=== PATIENT | female | born 1930 | race Caucasian/White ===

== ENCOUNTER 2017-01-25 20:51 | Inpatient (IN) | payer MEDICARE ==
[~2017-01-25] VITALS: Ht 154.9 cm; Wt 94.9 kg
[~2017-01-25 20:51] MED LIST: ACET500T55 PO; ASPI81TA44 PO; ASPI81TA9 PO; CALC600T11 PO; CYCL10TA2 PO; Cyclobenzaprine Hcl PO; DONE5TAB33 PO; ENAL5TAB PO; FURO20TA3 PO; FURO40TA4 PO; GLIP5TAB10 PO; HYDR-2666 PO; Hydrocodone Bit/Acetaminophen PO; Ipratropium/Albuterol Sulfate NEB; LEVO250T25 PO; LISI10TA2 PO; MAG DELAY64 MG PO; MAG30ORA2 PO; MECL12.5 PO; METH4TAB PO; METO25TA2 PO; METR500T PO; MIRA25TA PO; MOME13HF IH; PANT40TA5 PO; POTA20TA12 PO; PRED-220 PO; TOLT4CAP12 PO; ZOLP5TAB PO
--- NOTE | 2017-01-25 21:08 | ED.ADGEN ---
Past History Past Medical History: CAD, CHF, COPD, Diabetes, High Cholesterol, Heart Disease , Hypertension, AK, Stroke Past Surgical History: Other Smoking: Quit Greater Than 1 Year Alcohol Use: None Drug Use: None Adult General Chief Complaint Chief Complaint ".. This Lt foot started draining bad.. and it hurts.. the whole leg hurts... and I fell today.. on this Lt. arm..." HPI HPI Patient is a 86 year old female who presents with above hx and complaints of cellulitis and fall on Lt. arm today. Pt. reports the cellulitis just started. Pt. has hx into health history was coronary artery disease, diabetes, hypertension, COPD, AK, CVA, degenerative joint changes. Patient denies any travel. Patient denies any specific ill contacts. Patient follows with Dr. Ann., Review of Systems Review of Systems Constitutional: complaints of fever Eyes: Denies change in visual acuity, redness, or eye pain [] HENT: Denies nasal congestion or sore throat [] Respiratory: Denies cough or shortness of breath [] Cardiovascular: No additional information not addressed in HPI [] GI: Denies abdominal pain, nausea, vomiting, bloody stools or diarrhea [] : Denies dysuria or hematuria [] Musculoskeletal: Chronic back pain and joint pain [] Has history of left foot pain and drainage. Integument: Denies rash or skin lesions [] Neurologic: Denies headache, focal weakness or sensory changes [] Endocrine: Denies polyuria or polydipsia [] Family History Family History Noncontributory Current Medications Current Medications Current Medications Medications (Trade) Dose Ordered Sig/Gilberto Start Time Stop Time Status Last Admin Dose Admin Aspirin 324 mg 324 mg 1X ONCE 01/25/17 22:15 01/25/17 22:16 DC 01/25/17 22:15 324 MG Diphtheria/ Tetanus/Acell Pertussis 0.5 ml 0.5 ml ONCE ONCE 01/25/17 22:15 01/25/17 22:16 DC 01/25/17 22:15 0.5 ML Lactated Ringer's 1,000 ml @ 100 mls/hr Q10H 01/25/17 21:45 01/25/17 23:02 100 MLS/HR Ondansetron HCl (Zofran) 4 mg PRN Q4HRS PRN 01/26/17 00:15 01/27/17 00:14 Sodium Chloride (Iv Sodium Chloride 0.9% 250ml) 250 ml @ As Directed STK-MED ONCE 01/25/17 21:53 01/25/17 21:54 DC Vancomycin HCl (Vanco Per Pharmacy) 1 each PRN DAILY PRN 01/26/17 00:15 Vancomycin HCl 1 gm 1 gm STK-MED ONCE 01/25/17 21:54 01/25/17 21:55 DC Vancomycin HCl/ Sodium Chloride (Iv Sodium Chloride 0.9% 250ml) 250 ml @ 250 mls/hr 1X ONCE 01/25/17 21:45 01/25/17 22:44 UNV Vancomycin HCl/ Sodium Chloride (Iv Sodium Chloride 0.9% 500ml) 500 ml @ 250 mls/hr 1X ONCE 01/25/17 22:30 01/26/17 00:29 DC 01/25/17 23:00 250 MLS/HR Allergies Allergies Allergies Coded Allergies Type Severity Reaction Last Updated Verified cephalexin Allergy Intermediate 10/01/14 Yes famotidine Allergy Intermediate 10/01/14 Yes tetracycline Allergy Intermediate 10/01/14 Yes tolmetin Allergy Intermediate 10/01/14 Yes Physical Exam Physical Exam Constitutional:mild distress, non-toxic appearance. [] HENT: Normocephalic, atraumatic, bilateral external ears normal, oropharynx moist, no oral exudates, nose normal. [] Eyes: PERRLA, EOMI, conjunctiva normal, no discharge. Glasses. Neck: Normal range of motion, no tenderness, supple, no stridor. [] Cardiovascular: Tachycardia Heart rate regular rhythm, no murmur , PMI to Lt. Lungs & Thorax: Bilateral breath sounds equal at apexes with scattered wheezes on auscultation [] Abdomen: Bowel sounds normal, soft, no tenderness, no masses, no pulsatile masses. Obese. Skin: Warm, dry, bilateral erythema lower legs. lt foot more swollen and drainage. Back: No tenderness, no CVA tenderness. [] Extremities: Lt foot and ankle tenderness, no cyanosis, no clubbing, ROM intact , bilateral lower leg edema. [] Generalized weakness. Arthritic changes. Neurologic: Alert and oriented X 3, no large motor function deficits, Lt upper arm tenderness, decrease foot sensory, n Psychologic: Affect anxious, judgement normal, mood depressed. Current Patient Data Vital Signs Vital Signs Date Time Temp Pulse Resp B/P Pulse Ox O2 Delivery O2 Flow Rate FiO2 01/26/17 00:13 88 20 143/68 98 Room Air 01/25/17 23:46 98.5 Lab Results Laboratory Tests Test 01/25/17 23:15 White Blood Count 9.1x10^3/uL (4.0-11.0) Red Blood Count 3.23x10^6/uL (3.50-5.40) L Hemoglobin 10.6g/dL (12.0-15.5) L Hematocrit 31.8% (36.0-47.0) L Mean Corpuscular Volume 98fL (79-100) Mean Corpuscular Hemoglobin 33pg (25-35) Mean Corpuscular Hemoglobin Concent 33g/dL (31-37) Red Cell Distribution Width 16.6% (11.5-14.5) H Platelet Count 235x10^3/uL (140-400) Neutrophils (%) (Auto) 63% (31-73) Lymphocytes (%) (Auto) 26% (24-48) Monocytes (%) (Auto) 8% (0-9) Eosinophils (%) (Auto) 2% (0-3) Basophils (%) (Auto) 1% (0-3) Neutrophils # (Auto) 5.7x10^3uL (1.8-7.7) Lymphocytes # (Auto) 2.4x10^3/uL (1.0-4.8) Monocytes # (Auto) 0.8x10^3/uL (0.0-1.1) Eosinophils # (Auto) 0.2x10^3/uL (0.0-0.7) Basophils # (Auto) 0.1x10^3/uL (0.0-0.2) Prothrombin Time 11.0SEC (9.4-11.4) Prothrombin Time INR 1.1 (0.9-1.1) PTT 25SEC (23-33) D-Dimer (Erica) 1.07mg/L (0.00-0.50) H Sodium Level 143mmol/L (136-145) Potassium Level 3.9mmol/L (3.5-5.1) Chloride Level 106mmol/L (98-107) Carbon Dioxide Level 32mmol/L (21-32) Anion Gap 5 (6-14) L Blood Urea Nitrogen 18mg/dL (7-20) Creatinine 1.6mg/dL (0.6-1.0) H Estimated GFR (Cockcroft-Gault) 30.6 Glucose Level 129mg/dL (70-99) H Calcium Level 8.9mg/dL (8.5-10.1) Magnesium Level 1.9mg/dL (1.8-2.4) Total Bilirubin 0.4mg/dL (0.2-1.0) Direct Bilirubin 0.1mg/dL (0.0-0.2) Aspartate Amino Transferase (AST) 16U/L (15-37) Alanine Aminotransferase (ALT) 12U/L (14-59) L Alkaline Phosphatase 155U/L (46-116) H Creatine Kinase 100U/L (26-192) Creatine Kinase MB (Mass) 1.3ng/mL (0.0-3.6) Creatine Kinase MB Relative Index 1.3% (0-4) Troponin I Quantitative < 0.017ng/mL (0-0.055) HF-Wos-E-Type Natriuretic Peptide 587pg/mL (0-449) H Total Protein 7.3g/dL (6.4-8.2) Albumin 3.4g/dL (3.4-5.0) Lipase 63U/L (73-393) L EKG EKG My interpretation of EKG shows a sinus rhythm at 89 bpm. There is slightly prolonged NM interval. Leftward axis changes. But no findings acute STEMI at this time. [] Radiology/Procedures Radiology/Procedures My interpretation of left humerus shows degenerative joint changes. No obvious fracture dislocation. My interpretation left foot shows edema and severe degenerative joint changes. But no findings of displaced fracture. [] My interpretation of chest x-ray shows cardiomegaly and chronic COPD changes. Similar prior films. Degenerative joint changes. Course & Med Decision Making Course & Med Decision Making Pertinent Labs and Imaging studies reviewed. (See chart for details). Discussed presentation, testing and tx. plan with Dr. Garcia- will admit for further eval and tx. [] Final Impression Final Impression 1. Cellulitis[]- Lt leg 2. Falling 3. Anemia 4. Elevated Creat. 5. Hx. COPD 6. Hx. CADz Problems: Dragon Disclaimer Dragon Disclaimer This electronic medical record was generated, in whole or in part, using a voice recognition dictation system. LOLA HERNÁNDEZ MD Jan 25, 2017 21:08
[2017-01-25] MEDS ORDERED: IV RINGERS SOLUTION,LACTATED 1,000 ML IV SCH (21:45)
[2017-01-25] MEDS ORDERED: VANCOMYCIN 1 GM in IV NORMAL SALINE 250ML 250 ML IV ONE (21:45)
[2017-01-25] MEDS ORDERED: IV NORMAL SALINE 250ML 250 ML ONE (21:53)
--- NOTE | 2017-01-25 21:53 | EKG ---
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
[2017-01-25] MEDS ORDERED: VANCOMYCIN 1 GM VIAL. ONE (21:54)
[2017-01-25] MEDS ORDERED: ASPIRIN 81 MG TAB.CHEW PO ONE (22:15)
[2017-01-25] MEDS ORDERED: DIPHTH,PERTUSS(ACELL),TET TOX 0.5 ML DISP.SYRIN. VAX IM ONE (22:15)
[2017-01-25] MEDS ORDERED: VANCOMYCIN 2 GM in IV NORMAL SALINE 500ML 500 ML IV ONE (22:30)
[2017-01-25 23:37] LABS: BASO # 0.1 x10^3/uL (0.0-0.2); BASO % 1 % (0-3); EOS # 0.2 x10^3/uL (0.0-0.7); EOS % 2 % (0-3); HEMATOCRIT 31.8 % (36.0-47.0); HEMOGLOBIN 10.6 g/dL (12.0-15.5); LYMPH # 2.4 x10^3/uL (1.0-4.8); LYMPH % 26 % (24-48); MEAN CORPUSCULAR HEMOGLOBIN 33 pg (25-35); MEAN CORPUSCULAR HGB CONC 33 g/dL (31-37); MEAN CORPUSCULAR VOLUME 98 fL (79-100); MONO # 0.8 x10^3/uL (0.0-1.1); MONO % 8 % (0-9); NEUT # 5.7 x10^3uL (1.8-7.7); NEUT % 63 % (31-73); PLATELET COUNT 235 x10^3/uL (140-400); RED BLOOD COUNT 3.23 x10^6/uL (3.50-5.40); RED CELL DISTRIBUTION WIDTH 16.6 % (11.5-14.5); WHITE BLOOD COUNT 9.1 x10^3/uL (4.0-11.0)
--- NOTE | 2017-01-25 23:52 | RAD ---
Left lower extremity venous Doppler Indication: Left lower extremity pain and redness. Grayscale, color flow and duplex Doppler evaluation of the left lower extremity deep venous system was performed. There is no evidence of a left lower extremity DVT. The left lower extremity deep venous system demonstrates normal compressibility with normal response to augmentation and Valsalva. No fluid collections are seen. Impression: No evidence of left lower extremity DVT. Electronically signed by: Asad Garcia MD (Jan 25, 2017 23:51:02)
[2017-01-26] LABS: ALBUMIN 3.4 g/dL (3.4-5.0); CALCIUM 8.9 mg/dL (8.5-10.1); CREATININE 1.6 mg/dL (0.6-1.0); DIRECT BILIRUBIN 0.1 mg/dL (0.0-0.2); GFR 30.6; MAGNESIUM 1.9 mg/dL (1.8-2.4); POTASSIUM 3.9 mmol/L (3.5-5.1); TOTAL BILIRUBIN 0.4 mg/dL (0.2-1.0); TOTAL PROTEIN 7.3 g/dL (6.4-8.2)
[2017-01-26] MEDS ORDERED: ONDANSETRON PF 4 MG/2 ML VIAL. IV PRN (00:15)
[2017-01-26] MEDS ORDERED: VANCOMYCIN PER PHARMACY MC PRN (00:15)
[2017-01-26] MEDS ORDERED: IV NORMAL SALINE 250ML 250 ML ONE (00:41)
[2017-01-26] MEDS ORDERED: VANCOMYCIN 1 GM VIAL. ONE (00:41)
[2017-01-26 01:04] VITALS: BP 171/73
[2017-01-26] MEDS: CLINDAMYCIN 600MG PREMIX 50 ML IV SCH ×4 (01:24→21:12)
[2017-01-26] MEDS: IPRATRPIUM/ALBUTEROL 0.5/2.5MG 3 ML NEBU. NEB SCH ×3 (05:30→20:47)
[2017-01-26 06:06] VITALS: BP 131/63
[2017-01-26] MEDS: ASPIRIN 81 MG TAB.CHEW PO SCH (07:55)
--- NOTE | 2017-01-26 08:20 | RAD ---
Indication: Fall today. Evaluate for foreign body. Technique: 2 views of the left humerus are submitted for review. No comparison is available. Findings: There is no fracture or osseous lesion. There is no radiopaque foreign body. There are degenerative changes at the AC joint. Impression: Negative for fracture.
--- NOTE | 2017-01-26 08:21 | RAD ---
Indication: Fall today, pain and swelling. Concern for foreign body. Technique: 3 views of the left foot are submitted for review. No comparison is available. Findings: There is no fracture or dislocation. Hammertoe deformities are noted. Mild degenerative changes are greatest at the first metatarsal-phalangeal joint. There is soft tissue swelling. There is no radiopaque foreign body. There is bone demineralization. Impression: Soft tissue swelling.
--- NOTE | 2017-01-26 08:22 | RAD ---
Indication: Fall today. Concern for foreign body. Technique: Upright portable chest radiograph was obtained. Comparison is from May 02, 2016. Findings: The lungs are clear. The heart is mildly enlarged. There is no definite heart failure. There is atheromatous disease in the thoracic aorta. There are degenerative changes in the shoulders. There is no radiopaque foreign body. Impression: Mild cardiomegaly
[2017-01-26] MEDS ORDERED: FURO40TA4 PO (10:47)
[2017-01-26] MEDS ORDERED: LISI-334 PO (10:47)
[2017-01-26] MEDS ORDERED: POTA10TA10 PO (11:13)
[2017-01-26] MEDS ORDERED: GLIP5TAB10 PO (11:14)
[2017-01-26] MEDS ORDERED: GABA-586 PO (11:14)
[2017-01-26] MEDS: ENOXAPARIN 30 MG/0.3 ML DISP.SYRIN. SQ SCH (11:34)
[2017-01-26 12:19] VITALS: BP 130/66
[2017-01-26 15:14] VITALS: BP 131/73
[2017-01-26] MEDS: POTASSIUM CHLORIDE 10 MEQ TABLET.ER. PO SCH (16:48)
[2017-01-26] MEDS: GABAPENTIN 300 MG CAPSULE. PO SCH ×2 (16:49→21:11)
[2017-01-26] MEDS: LISINOPRIL 20 MG TABLET PO SCH (16:49)
[2017-01-26] MEDS: FUROSEMIDE 40 MG TABLET PO SCH (16:49)
[2017-01-26] MEDS: ACETAMINOPHEN 500 MG TABLET PO PRN (16:50)
[2017-01-26 19:38] VITALS: BP 109/52
[2017-01-26] MEDS: NYSTATIN TOPICAL POWDER 30GM BOTTLE. TP SCH (21:00)
--- NOTE | 2017-01-26 21:09 | ACF ---
Admission Criteria Forms CELLULITIS Clinical Indications for Admission to Inpatient Care (Place 'X' for any and all applicable criteria): Admission is indicated for ANY ONE of the following(1)(2)(3)(4)(5): [ ]I. Limb-threatening infection [ ]II. High-risk comorbid condition as indicated by ANY ONE of the following: [ ]a) Uncontrolled diabetes (eg, HbA1c greater than 10% (0.1)) [ ]b) Cirrhosis [ ]c) Neutropenia [ ]d) Asplenia [ ]e) Immunosuppression [ ]f) Symptomatic heart failure [ ]III. Failure of outpatient therapy as indicated by ALL of the following: [ ]a) Progression or no improvement after adequate trial (minimum of 48 hours, with longer period for stable lower extremity infection) [ ]b) Adequate antibiotic regimen as indicated by use of ANY ONE of the following: [ ]i) First-generation cephalosporin (e.g., cephalexin) [ ]ii) Antistaphylococcal penicillin (e.g., dicloxacillin) [ ]iii) Penicillin-allergic patient regimen (clindamycin, extended-spectrum fluoroquinolone, or doxycycline) [ ]iv) Resistant organism (eg, methicillin-resistant Staphylococcus aureus) regimen (6) [ ]c) Outpatient intravenous therapy regimen is not appropriate due to ANY ONE of the following. (7)(8)(9)(10): [ ]i) It was tried and was not successful (eg, progression of infection). [ ]ii) It is not available or cannot be arranged in a clinically appropriate time frame (e.g., the next day). [ ]iii) Clinical presentation (eg, acuity of infection, rapidity of progression, confirmed or suspected bacteremia) is judged to require ALL of the following: [ ]1) Immediate initiation of intravenous therapy ( eg, cannot wait for next day) [ ]2) Intensity of patient monitoring and observation (eg, vital sign measurement, checks for infection progression) that cannot be provided at other than inpatient level of care [ ]IV. Mental status changes [ ]V. Bacteremia [ ]. Hemodynamic instability [ ]VII. Suspected necrotizing soft tissue infection (e.g., gas in tissue)(11)( 12) [ ]VIII. Orbital infection (13)(14) [ ]IX. Associated surgical procedure (e.g., abscess drainage, debridement) not amenable to outpatient, emergency department, or observation care [ ]X. Cutaneous gangrene [ ]XI. High fever (temperature greater than 39.5 degrees C (103.1 degrees F) (oral)) not responsive to outpatient, emergency department, or observation care therapy [X ]XIII. Inpatient admission required rather than observation care (Also use Cellulitis: Observation Care as appropriate) because of ANY ONE of the following : [ ]a) Periorbital or perineal infection that is severe or worsening [ ]b) Severe pain requiring acute inpatient management [ ]c) IV fluid to replace significant ongoing (e.g., for over 24 hours) losses (greater than 3L/m2 per day) [ ]d) Compartment syndrome monitoring (17) [ ]e) Strict or protective (eg, laminar flow) isolation [ ]f) Urgent debridement or skin grafting [ ]g) Bone or joint debridement [ ]h) Immediate inpatient surgery [X ]i) Other condition, treatment or monitoring requiring inpatient admission Extended stay beyond goal length of stay may be needed for (1)(18): [ ]a) Necrotizing soft tissue infection or fasciitis [ ]b) Gram-negative infection [ ]c) Methicillin-resistant Staphylococcal aureus (MRSA) infection [ ]d) Peripheral venous insufficiency with cellulitis [ ]e) Extensive edema [ ]f) Sepsis or continued Hemodynamic instability [ ]g) Continued high fever or mental status change [ ]h) Bacteremia [ ]i) Active serious comorbid conditions ( eg, heart failure, renal insufficiency) The original [employer] content created by [employer] has been revised. The portions of the content which have been revised are identified through the use of italic text or in bold, and [facility] has neither reviewed nor approved the modified material. All other unmodified content is copyright [facility] Please see references footnoted in the original [facility] edition 2016 Admission Criteria Met?: Yes JIL ELLIS Jan 26, 2017 21:09
[2017-01-26] MEDS: GLIPIZIDE 5 MG TABLET PO SCH (21:11)
[2017-01-26] MEDS: VANCOMYCIN 1.5 GM in IV NORMAL SALINE 500ML 500 ML IV SCH (21:14)
[2017-01-26 22:10] LABS: HEMOGLOBIN A1C 5.6 % (4.8-5.6)
[2017-01-27 00:18] VITALS: BP 122/55
[2017-01-27] MEDS: CLINDAMYCIN 600MG PREMIX 50 ML IV SCH ×3 (04:59→21:43)
[2017-01-27 05:16] VITALS: BP 116/70
[2017-01-27] MEDS: IPRATRPIUM/ALBUTEROL 0.5/2.5MG 3 ML NEBU. NEB SCH ×4 (05:40→20:31)
[2017-01-27 07:34] LABS: BASO % 1 % (0-3); EOS # 0.2 x10^3/uL (0.0-0.7); EOS % 3 % (0-3); HEMATOCRIT 26.8 % (36.0-47.0); HEMOGLOBIN 8.9 g/dL (12.0-15.5); LYMPH # 1.9 x10^3/uL (1.0-4.8); LYMPH % 28 % (24-48); MEAN CORPUSCULAR HEMOGLOBIN 33 pg (25-35); MEAN CORPUSCULAR HGB CONC 33 g/dL (31-37); MEAN CORPUSCULAR VOLUME 98 fL (79-100); MONO # 0.6 x10^3/uL (0.0-1.1); MONO % 10 % (0-9); NEUT # 3.9 x10^3uL (1.8-7.7); NEUT % 59 % (31-73); PLATELET COUNT 200 x10^3/uL (140-400); RED BLOOD COUNT 2.73 x10^6/uL (3.50-5.40); WHITE BLOOD COUNT 6.6 x10^3/uL (4.0-11.0)
[2017-01-27] MEDS: GABAPENTIN 300 MG CAPSULE. PO SCH ×3 (07:57→20:53)
[2017-01-27] MEDS: LISINOPRIL 20 MG TABLET PO SCH (07:57)
[2017-01-27] MEDS: ENOXAPARIN 30 MG/0.3 ML DISP.SYRIN. SQ SCH (07:58)
[2017-01-27] MEDS: GLIPIZIDE 5 MG TABLET PO SCH ×2 (07:58→20:53)
[2017-01-27] MEDS: FUROSEMIDE 40 MG TABLET PO SCH (07:58)
[2017-01-27] MEDS: ASPIRIN 81 MG TAB.CHEW PO SCH (07:58)
[2017-01-27] MEDS: POTASSIUM CHLORIDE 10 MEQ TABLET.ER. PO SCH (07:58)
[2017-01-27 08:04] LABS: ALBUMIN 2.9 g/dL (3.4-5.0); ALBUMIN/GLOBULIN RATIO 0.9 (1.0-1.7); CALCIUM 8.4 mg/dL (8.5-10.1); CREATININE 1.8 mg/dL (0.6-1.0); GFR 26.7; POTASSIUM 3.8 mmol/L (3.5-5.1); TOTAL BILIRUBIN 0.4 mg/dL (0.2-1.0); TOTAL PROTEIN 6.3 g/dL (6.4-8.2)
[2017-01-27 12:38] VITALS: BP 104/63
[2017-01-27] MEDS: NYSTATIN TOPICAL POWDER 30GM BOTTLE. TP SCH ×2 (14:52→20:54)
[2017-01-27 19:00] VITALS: BP 105/61
[2017-01-27] MEDS: ACETAMINOPHEN 500 MG TABLET PO PRN (20:03)
[2017-01-27 22:55] LABS: VANC TR 18.5 mcg/mL (10.0-20.0)
[2017-01-27] MEDS: VANCOMYCIN 1.5 GM in IV NORMAL SALINE 500ML 500 ML IV SCH (23:05)
--- NOTE | 2017-01-28 02:21 | PN ---
DATE: SUBJECTIVE: An 86-year-old female with cellulitis to her legs. The patient is resting fairly comfortably, making progress. She is feeling somewhat better legs healed up. PHYSICAL EXAMINATION: VITAL SIGNS: Blood pressure 105/60, respiratory rate 20, pulse 90, and afebrile. GENERAL: The patient is alert and oriented. LUNGS: Diminished, but clear. CARDIOVASCULAR: Regular sinus rhythm. ABDOMEN: Protuberant. EXTREMITIES: Leg show marked swelling with slightly less erythema continue to monitor the patient accordingly and make further evaluation. IMPRESSION: Cellulitis to the lower extremities. PLAN: As above, continue to monitor the patient accordingly. Continue with IV antibiotic therapy. TERESA OWENS MD DR: TAMMY/lucina JOB#: [id number] / [id number]
[2017-01-28] MEDS: CLINDAMYCIN 600MG PREMIX 50 ML IV SCH ×3 (05:16→22:00)
[2017-01-28] MEDS: IPRATRPIUM/ALBUTEROL 0.5/2.5MG 3 ML NEBU. NEB SCH ×4 (05:45→19:07)
[2017-01-28 05:51] VITALS: BP 109/63
[2017-01-28] MEDS: ENOXAPARIN 30 MG/0.3 ML DISP.SYRIN. SQ SCH (09:15)
[2017-01-28] MEDS: GABAPENTIN 300 MG CAPSULE. PO SCH ×3 (09:16→21:00)
[2017-01-28] MEDS: FUROSEMIDE 40 MG TABLET PO SCH (09:16)
[2017-01-28] MEDS: POTASSIUM CHLORIDE 10 MEQ TABLET.ER. PO SCH (09:16)
[2017-01-28] MEDS: ACETAMINOPHEN 500 MG TABLET PO PRN ×3 (09:16→18:03)
[2017-01-28] MEDS: GLIPIZIDE 5 MG TABLET PO SCH ×2 (09:16→21:00)
[2017-01-28] MEDS: NYSTATIN TOPICAL POWDER 30GM BOTTLE. TP SCH ×2 (09:22→21:00)
[2017-01-28] MEDS: ASPIRIN 81 MG TAB.CHEW PO SCH (09:22)
[2017-01-28] MEDS: LISINOPRIL 20 MG TABLET PO SCH (09:22)
[2017-01-28 09:27] VITALS: BP 104/65
--- NOTE | 2017-01-28 10:01 | HP ---
ADMIT DATE: 01/26/2017 HISTORY OF PRESENT ILLNESS: An 86-year-old female came in with infection of her lower leg. The patient also had become increasingly weak and this 86-year-old female began to fall down quite a bit, injured her legs, as a result of this leg got infected. Overall, the patient's legs became infected. She had tried outpatient oral antibiotics, but there was no success in that. So, consequently the patient had to be brought in unfortunately, for IV antibiotic therapy. The patient in turn also had quite a bit of pain in her legs. The patient was receiving IV antibiotic therapy and further evaluation of her generalized weakness, cellulitis and injury down to her legs . PAST MEDICAL HISTORY: Coronary artery disease, type 2 diabetes, hypertension, COPD, myocardial infarction, stroke, degenerative joint disease, morbid obesity, CHF, heart disease, history of stroke, and ND. SOCIAL HISTORY: The patient used to smoke; however, she has quit more than over 5 years ago. The patient otherwise unremarkable there. REVIEW OF SYSTEMS: The patient also said she has generalized weakness, but denies any real problems of chest pain or shortness of breath except for the pain in her legs. ALLERGIES: KEFLEX, TETRACYCLINE, , PEPCID AND TOLMETIN. FAMILY HISTORY: Unremarkable. HOME MEDICATIONS: Include that of Tylenol, furosemide, gabapentin, glipizide, lisinopril, potassium chloride PHYSICAL EXAMINATION: GENERAL: The patient on exam is a pleasant white female in moderate amount of pain, probably 7-8/10. The patient is lying in bed. She is very weak. VITAL SIGNS: Blood pressure approximately 130/70, respiratory rate 20, and pulse 90. She is afebrile. HEENT: The patient's head was atraumatic, normocephalic. Eyes: PERRLA without jaundice. Mouth and Throat: Poor dentition. NECK: Supple, without JVD, carotid bruits or thyromegaly. LUNGS: Diminished throughout, but clear. CARDIOVASCULAR: Regular sinus rhythm, S1, S2, without murmur, rub, thrill, or extra heart sounds. ABDOMEN: Protuberant, soft, and nontender. EXTREMITIES: No clubbing, cyanosis, or edema. The patient's legs show marked erythema to the lower legs, especially the left leg, where the infection or inflammation has gone way up into the knee area. As a result of this, the patient currently is on IV antibiotic therapy. The patient's; otherwise, ultrasound of the lower legs were negative for blood clots or infection. As far as the x-rays ____ . Chest x-ray showed mild cardiomegaly. Her labs were very nonspecific showing chronic anemia; otherwise, basically unremarkable. She also has an element of hypothyroidism. In any case, the patient admitted for cellulitis, multiple falls, generalized weakness, morbid obesity, hypothyroidism, hyperglycemia, and chronic kidney disease 3. The patient will continue to be monitored carefully ____ further evaluation. Continue on IV antibiotic therapy and pain management. TERESA OWENS MD DR: TAMMY/lucina JOB#: [id number] / [id number]
[2017-01-28 11:31] VITALS: BP 105/70
[2017-01-28 15:14] VITALS: BP 104/51
[2017-01-28] MEDS: VANCOMYCIN 1.5 GM in IV NORMAL SALINE 500ML 500 ML IV SCH (23:00)
[2017-01-29 02:42] VITALS: BP 106/50
[2017-01-29 04:03] VITALS: BP 146/74
[2017-01-29] MEDS: IPRATRPIUM/ALBUTEROL 0.5/2.5MG 3 ML NEBU. NEB SCH ×2 (04:53→09:51)
--- NOTE | 2017-01-29 05:58 | RAD ---
Chest AP portable at 05:26: Reason for examination: Chest pressure and shortness of breath with arm numbness. Comparison is made to previous exam dated 01/25/2017. Inspiratory effort is poor. Heart size is normal. Mediastinum is unremarkable. Lung goodwin are clear. No acute bone abnormalities are seen. Impression: No acute cardiopulmonary disease. Electronically signed by: Ivy Rea MD (Jan 29, 2017 05:56:12)
--- NOTE | 2017-01-29 06:10 | EKG ---
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
[2017-01-29] MEDS: CLINDAMYCIN 600MG PREMIX 50 ML IV SCH ×2 (06:19→13:43)
[2017-01-29] MEDS ORDERED: DEXTROSE 50% 25 GM / 50ML DISP.SYRIN. IV PRN (07:55)
[2017-01-29 07:57] VITALS: BP 127/75
[2017-01-29] MEDS: POTASSIUM CHLORIDE 10 MEQ TABLET.ER. PO SCH (08:04)
[2017-01-29] MEDS: GLIPIZIDE 5 MG TABLET PO SCH (09:00)
[2017-01-29] MEDS: GABAPENTIN 300 MG CAPSULE. PO SCH ×2 (10:00→13:42)
[2017-01-29] MEDS: ENOXAPARIN 30 MG/0.3 ML DISP.SYRIN. SQ SCH (10:00)
[2017-01-29] MEDS: ASPIRIN 81 MG TAB.CHEW PO SCH (10:00)
[2017-01-29] MEDS: LISINOPRIL 20 MG TABLET PO SCH (10:02)
[2017-01-29] MEDS: FUROSEMIDE 40 MG TABLET PO SCH (10:03)
[2017-01-29] MEDS: NYSTATIN TOPICAL POWDER 30GM BOTTLE. TP SCH (10:07)
[2017-01-29 11:13] VITALS: BP 125/54
[2017-01-29] MEDS ORDERED: IV NORMAL SALINE 50ML 50 ML ONE (13:48)
[2017-01-30] MEDS ORDERED: GLIPIZIDE 5 MG TABLET PO SCH (08:00)
== END 2017-01-29 14:10 | DRG 603 ==
LOC: ER 20:51 → 1 SOUTH 01-26 00:20
PROVIDERS: ADMIT Family Medicine; ATTEND Family Medicine
DX: L03.116 Cellulitis of left lower limb (principal); I13.0 Hypertensive heart and chronic kidney disease with heart failure and stage 1 through stage 4 chronic kidney disease, or unspecified chronic kidney disease; E78.00 Pure hypercholesterolemia, unspecified; I25.10 Atherosclerotic heart disease of native coronary artery without angina pectoris; I50.9 Heart failure, unspecified; J44.9 Chronic obstructive pulmonary disease, unspecified; E66.01 Morbid (severe) obesity due to excess calories; M19.90 Unspecified osteoarthritis, unspecified site; D64.9 Anemia, unspecified; Z86.73 Personal history of transient ischemic attack (TIA), and cerebral infarction without residual deficits; Z87.891 Personal history of nicotine dependence; Z68.39 Body mass index [BMI] 39.0-39.9, adult; Z88.1 Allergy status to other antibiotic agents; Z88.8 Allergy status to other drugs, medicaments and biological substances; I25.2 Old myocardial infarction; E03.9 Hypothyroidism, unspecified; E11.65 Type 2 diabetes mellitus with hyperglycemia; N18.3 Chronic kidney disease, stage 3 (moderate)
CPT/HCPCS: 36415; 36569; 71010; 73060; 73630; 80048; 80053; 80076; 80202; 82553; 82947; 83036; 83690; 83735; 83880; 84443; 84484; 85027; 85379; 85610; 85730; 87040; 87070; 90471; 90715; 93005; 93971; 94640; J1650; J3370; J3490; J7040; J7120; J7620; 97110; 97530; 99285-25

== ENCOUNTER 2017-01-29 14:16 | Inpatient (IN) | payer MEDICARE ==
[~2017-01-29] VITALS: Ht 154.9 cm; Wt 101.8 kg
[~2017-01-29 14:16] MED LIST changes: +GABA-586 PO; +LISI-334 PO; +POTA10TA10 PO
[2017-01-29] MEDS ORDERED: VANCOMYCIN PER PHARMACY MC PRN (15:15)
[2017-01-29] MEDS ORDERED: IV NORMAL SALINE 250ML 250 ML ONE (16:31)
[2017-01-29] MEDS: VANCOMYCIN 1.5 GM in IV NORMAL SALINE 500ML 500 ML IV SCH (16:35)
[2017-01-29] MEDS: ACETAMINOPHEN 500 MG TABLET PO PRN (19:45)
[2017-01-29] MEDS: GABAPENTIN 300 MG CAPSULE. PO SCH (19:45)
[2017-01-29] MEDS: NYSTATIN TOPICAL POWDER 30GM BOTTLE. TP SCH (19:47)
[2017-01-29] MEDS: CLINDAMYCIN 600MG PREMIX 50 ML IV SCH (21:30)
[2017-01-29 22:23] VITALS: BP 100/59
[2017-01-29] MEDS ORDERED: VANCOMYCIN 1.5 GM in IV NORMAL SALINE 500ML 500 ML IV SCH (23:00)
[2017-01-30 04:06] VITALS: BP 108/51
[2017-01-30] MEDS: CLINDAMYCIN 600MG PREMIX 50 ML IV SCH ×3 (04:55→21:26)
[2017-01-30] MEDS: FUROSEMIDE 40 MG TABLET PO SCH (08:50)
[2017-01-30] MEDS: POTASSIUM CHLORIDE 10 MEQ TABLET.ER. PO SCH (08:50)
[2017-01-30] MEDS: GABAPENTIN 300 MG CAPSULE. PO SCH ×3 (08:50→20:16)
[2017-01-30] MEDS: GLIPIZIDE 5 MG TABLET PO SCH (08:50)
[2017-01-30] MEDS: LISINOPRIL 20 MG TABLET PO SCH (08:51)
[2017-01-30] MEDS: NYSTATIN TOPICAL POWDER 30GM BOTTLE. TP SCH ×2 (08:51→20:16)
[2017-01-30] MEDS: ACETAMINOPHEN 500 MG TABLET PO PRN ×2 (08:53→20:16)
[2017-01-30] MEDS: IPRATRPIUM/ALBUTEROL 0.5/2.5MG 3 ML NEBU. NEB PRN ×2 (08:53→15:11)
[2017-01-30] MEDS: VANCOMYCIN 1.5 GM in IV NORMAL SALINE 500ML 500 ML IV SCH (16:59)
[2017-01-30 18:21] VITALS: BP 135/65
[2017-01-30] MEDS ORDERED: IV NORMAL SALINE 250ML 250 ML ONE (21:28)
[2017-01-31] MEDS: CLINDAMYCIN 600MG PREMIX 50 ML IV SCH ×3 (05:52→21:35)
[2017-01-31 06:03] VITALS: BP 117/64
[2017-01-31] MEDS: GLIPIZIDE 5 MG TABLET PO SCH (10:11)
[2017-01-31] MEDS: FUROSEMIDE 40 MG TABLET PO SCH (10:11)
[2017-01-31] MEDS: LISINOPRIL 20 MG TABLET PO SCH (10:12)
[2017-01-31] MEDS: POTASSIUM CHLORIDE 10 MEQ TABLET.ER. PO SCH (10:12)
[2017-01-31] MEDS: GABAPENTIN 300 MG CAPSULE. PO SCH ×3 (10:12→21:35)
[2017-01-31] MEDS: NYSTATIN TOPICAL POWDER 30GM BOTTLE. TP SCH ×2 (10:14→21:39)
[2017-01-31] MEDS: IPRATRPIUM/ALBUTEROL 0.5/2.5MG 3 ML NEBU. NEB PRN ×2 (12:03→16:34)
[2017-01-31 14:24] VITALS: BP 130/81
[2017-01-31] MEDS: VANCOMYCIN 1.5 GM in IV NORMAL SALINE 500ML 500 ML IV SCH (16:00)
[2017-01-31 16:19] LABS: VANC TR 32.1 mcg/mL (10.0-20.0)
[2017-01-31] MEDS ORDERED: FUROSEMIDE 40 MG TABLET PO ONE (16:50)
[2017-01-31 19:10] VITALS: BP 111/51
[2017-01-31] MEDS: ACETAMINOPHEN 500 MG TABLET PO PRN (21:36)
[2017-02-01] MEDS: ACETAMINOPHEN 500 MG TABLET PO PRN (02:08)
[2017-02-01 05:35] VITALS: BP 104/55
[2017-02-01] MEDS: CLINDAMYCIN 600MG PREMIX 50 ML IV SCH (05:36)
[2017-02-01] MEDS: GABAPENTIN 300 MG CAPSULE. PO SCH ×3 (08:47→20:25)
[2017-02-01] MEDS: GLIPIZIDE 5 MG TABLET PO SCH (08:48)
[2017-02-01] MEDS: LISINOPRIL 20 MG TABLET PO SCH (08:48)
[2017-02-01] MEDS: FUROSEMIDE 40 MG TABLET PO SCH (08:48)
[2017-02-01] MEDS: NYSTATIN TOPICAL POWDER 30GM BOTTLE. TP SCH ×2 (08:48→20:25)
[2017-02-01] MEDS: POTASSIUM CHLORIDE 10 MEQ TABLET.ER. PO SCH (08:48)
[2017-02-01] MEDS: IPRATRPIUM/ALBUTEROL 0.5/2.5MG 3 ML NEBU. NEB PRN ×3 (09:40→20:22)
[2017-02-01] MEDS ORDERED: FENTANYL PF 100 MCG/2 ML VIAL. IV PRN (13:15)
[2017-02-01] MEDS ORDERED: HYDROCODONE/APAP 5/325MG TABLET. PO PRN (13:15)
[2017-02-01] MEDS: HYDROCODONE/APAP 5/325MG TABLET. PO PRN ×2 (13:51→20:26)
[2017-02-01] MEDS: FUROSEMIDE 40 MG/4 ML VIAL IVP SCH (13:52)
[2017-02-01 14:13] VITALS: BP 134/58
[2017-02-01] MEDS ORDERED: VANCOMYCIN RANDOM LEVEL. MC ONE (15:30)
[2017-02-01 15:31] LABS: CREATININE 2.1 mg/dL (0.6-1.0); GFR 22.4
[2017-02-01 19:20] VITALS: BP 114/50
[2017-02-02] MEDS: HYDROCODONE/APAP 5/325MG TABLET. PO PRN (05:12)
[2017-02-02 05:40] VITALS: BP 119/67
[2017-02-02] MEDS: FUROSEMIDE 40 MG/4 ML VIAL IVP SCH (08:08)
[2017-02-02] MEDS: POTASSIUM CHLORIDE 10 MEQ TABLET.ER. PO SCH (08:08)
[2017-02-02] MEDS: GLIPIZIDE 5 MG TABLET PO SCH (08:08)
[2017-02-02] MEDS: GABAPENTIN 300 MG CAPSULE. PO SCH ×3 (08:08→19:58)
[2017-02-02] MEDS: DOCUSATE SODIUM 100 MG CAPSULE PO SCH (08:08)
[2017-02-02] MEDS: LISINOPRIL 20 MG TABLET PO SCH (08:08)
[2017-02-02] MEDS: NYSTATIN TOPICAL POWDER 30GM BOTTLE. TP SCH ×2 (08:09→21:00)
[2017-02-02] MEDS ORDERED: DOCUSATE SODIUM 100 MG CAPSULE PO SCH (09:00)
[2017-02-02] MEDS ORDERED: FUROSEMIDE 40 MG/4 ML VIAL IVP SCH (09:00)
[2017-02-02] MEDS: IPRATRPIUM/ALBUTEROL 0.5/2.5MG 3 ML NEBU. NEB PRN ×2 (11:55→16:35)
[2017-02-02] MEDS: FENTANYL PF 100 MCG/2 ML VIAL. IV PRN (20:10)
[2017-02-02 20:21] VITALS: BP 145/75
[2017-02-03] MEDS: GLIPIZIDE 5 MG TABLET PO SCH (08:47)
[2017-02-03] MEDS: DOCUSATE SODIUM 100 MG CAPSULE PO SCH (08:48)
[2017-02-03] MEDS: LISINOPRIL 20 MG TABLET PO SCH (08:48)
[2017-02-03] MEDS: FUROSEMIDE 40 MG/4 ML VIAL IVP SCH (08:48)
[2017-02-03] MEDS: GABAPENTIN 300 MG CAPSULE. PO SCH ×3 (08:48→19:33)
[2017-02-03] MEDS: POTASSIUM CHLORIDE 10 MEQ TABLET.ER. PO SCH (08:48)
[2017-02-03] MEDS: NYSTATIN TOPICAL POWDER 30GM BOTTLE. TP SCH ×2 (08:49→19:34)
[2017-02-03] MEDS: IPRATRPIUM/ALBUTEROL 0.5/2.5MG 3 ML NEBU. NEB PRN ×3 (10:58→20:23)
[2017-02-03] MEDS: HYDROCODONE/APAP 5/325MG TABLET. PO PRN ×2 (14:45→19:34)
[2017-02-03 19:14] VITALS: BP 110/76
[2017-02-03] MEDS: FENTANYL PF 100 MCG/2 ML VIAL. IV PRN (23:16)
[2017-02-04] MEDS: HYDROCODONE/APAP 5/325MG TABLET. PO PRN ×4 (01:08→20:21)
[2017-02-04 05:45] VITALS: BP 127/55
[2017-02-04] MEDS: FUROSEMIDE 40 MG/4 ML VIAL IVP SCH (08:29)
[2017-02-04] MEDS: GABAPENTIN 300 MG CAPSULE. PO SCH ×3 (08:30→20:20)
[2017-02-04] MEDS: POTASSIUM CHLORIDE 10 MEQ TABLET.ER. PO SCH (08:30)
[2017-02-04] MEDS: DOCUSATE SODIUM 100 MG CAPSULE PO SCH (08:30)
[2017-02-04] MEDS: GLIPIZIDE 5 MG TABLET PO SCH (08:30)
[2017-02-04] MEDS: LISINOPRIL 20 MG TABLET PO SCH (08:30)
[2017-02-04] MEDS: NYSTATIN TOPICAL POWDER 30GM BOTTLE. TP SCH ×2 (08:31→20:20)
[2017-02-04 09:37] VITALS: BP 134/63
[2017-02-04] MEDS: IPRATRPIUM/ALBUTEROL 0.5/2.5MG 3 ML NEBU. NEB PRN ×4 (09:41→20:27)
[2017-02-04 15:24] VITALS: BP 121/58
[2017-02-04 20:18] VITALS: BP 104/56
[2017-02-05 05:33] VITALS: BP 96/50
[2017-02-05] MEDS: FUROSEMIDE 40 MG/4 ML VIAL IVP SCH (08:24)
[2017-02-05] MEDS: POTASSIUM CHLORIDE 10 MEQ TABLET.ER. PO SCH (08:24)
[2017-02-05] MEDS: GABAPENTIN 300 MG CAPSULE. PO SCH ×3 (08:24→20:13)
[2017-02-05] MEDS: GLIPIZIDE 5 MG TABLET PO SCH (08:24)
[2017-02-05] MEDS: LISINOPRIL 20 MG TABLET PO SCH (08:24)
[2017-02-05] MEDS: DOCUSATE SODIUM 100 MG CAPSULE PO SCH (08:25)
[2017-02-05] MEDS: HYDROCODONE/APAP 5/325MG TABLET. PO PRN ×2 (08:25→20:13)
[2017-02-05] MEDS: NYSTATIN TOPICAL POWDER 30GM BOTTLE. TP SCH ×2 (08:25→20:13)
[2017-02-05] MEDS: IPRATRPIUM/ALBUTEROL 0.5/2.5MG 3 ML NEBU. NEB PRN ×3 (11:11→19:39)
[2017-02-05 13:20] VITALS: BP_SYST 124; BP_SYST 133; BP_DIAS 68; BP_DIAS 69
[2017-02-05 14:48] VITALS: BP 121/57
[2017-02-05 19:44] VITALS: BP 111/48
[2017-02-06 05:12] VITALS: BP 119/54
[2017-02-06] MEDS: FUROSEMIDE 40 MG/4 ML VIAL IVP SCH (08:45)
[2017-02-06] MEDS: HYDROCODONE/APAP 5/325MG TABLET. PO PRN (08:46)
[2017-02-06] MEDS: LISINOPRIL 20 MG TABLET PO SCH (08:47)
[2017-02-06] MEDS: GABAPENTIN 300 MG CAPSULE. PO SCH ×3 (08:47→20:56)
[2017-02-06] MEDS: GLIPIZIDE 5 MG TABLET PO SCH (08:47)
[2017-02-06] MEDS: POTASSIUM CHLORIDE 10 MEQ TABLET.ER. PO SCH (08:47)
[2017-02-06] MEDS: DOCUSATE SODIUM 100 MG CAPSULE PO SCH (08:47)
[2017-02-06] MEDS: NYSTATIN TOPICAL POWDER 30GM BOTTLE. TP SCH ×2 (08:47→20:56)
[2017-02-06] MEDS: IPRATRPIUM/ALBUTEROL 0.5/2.5MG 3 ML NEBU. NEB PRN ×4 (09:32→21:59)
--- NOTE | 2017-02-06 12:17 | RAD ---
AP chest, 02/06/2017: History: Shortness of breath, wheezing Comparison is made to a study from 01/29/2017. A right PICC has been inserted. It extends into the right neck, presumably in the right jugular vein. Its tip is not clearly visualized. The heart size and pulmonary vascularity are within normal limits. There is calcific plaquing of the aorta. There is mild atelectasis medially in the left base. The right chest is clear. IMPRESSION: 1. Malposition of the right PICC. 2. Mild left basilar atelectasis.
[2017-02-06 16:37] VITALS: BP 114/53
[2017-02-06] MEDS: ACETAMINOPHEN 500 MG TABLET PO PRN (20:56)
[2017-02-07] MEDS: HYDROCODONE/APAP 5/325MG TABLET. PO PRN (05:17)
[2017-02-07 05:23] VITALS: BP 114/64
[2017-02-07] MEDS: IPRATRPIUM/ALBUTEROL 0.5/2.5MG 3 ML NEBU. NEB PRN ×3 (05:26→16:04)
[2017-02-07] MEDS: GLIPIZIDE 5 MG TABLET PO SCH (08:35)
[2017-02-07] MEDS: FUROSEMIDE 40 MG TABLET PO SCH (08:36)
[2017-02-07] MEDS: LISINOPRIL 20 MG TABLET PO SCH (08:36)
[2017-02-07] MEDS: POTASSIUM CHLORIDE 10 MEQ TABLET.ER. PO SCH (08:36)
[2017-02-07] MEDS: NYSTATIN TOPICAL POWDER 30GM BOTTLE. TP SCH ×2 (08:36→21:10)
[2017-02-07] MEDS: DOCUSATE SODIUM 100 MG CAPSULE PO SCH (08:36)
[2017-02-07] MEDS: GABAPENTIN 300 MG CAPSULE. PO SCH ×3 (08:36→21:08)
[2017-02-07 14:51] VITALS: BP 143/54
[2017-02-07 19:34] VITALS: BP 166/74
[2017-02-07] MEDS: ACETAMINOPHEN 500 MG TABLET PO PRN (21:08)
[2017-02-08 05:32] VITALS: BP 128/54
[2017-02-08] MEDS: ACETAMINOPHEN 500 MG TABLET PO PRN ×2 (09:16→20:34)
[2017-02-08] MEDS: DOCUSATE SODIUM 100 MG CAPSULE PO SCH (09:16)
[2017-02-08] MEDS: GLIPIZIDE 5 MG TABLET PO SCH (09:16)
[2017-02-08] MEDS: LISINOPRIL 20 MG TABLET PO SCH (09:16)
[2017-02-08] MEDS: POTASSIUM CHLORIDE 10 MEQ TABLET.ER. PO SCH (09:16)
[2017-02-08] MEDS: FUROSEMIDE 40 MG TABLET PO SCH (09:16)
[2017-02-08] MEDS: GABAPENTIN 300 MG CAPSULE. PO SCH ×3 (09:16→20:34)
[2017-02-08] MEDS: NYSTATIN TOPICAL POWDER 30GM BOTTLE. TP SCH ×2 (09:18→20:34)
[2017-02-08] MEDS: IPRATRPIUM/ALBUTEROL 0.5/2.5MG 3 ML NEBU. NEB PRN ×3 (10:09→20:26)
[2017-02-09] MEDS: IPRATRPIUM/ALBUTEROL 0.5/2.5MG 3 ML NEBU. NEB PRN ×4 (04:38→20:56)
[2017-02-09 05:24] VITALS: BP 174/81
[2017-02-09 07:45] LABS: BASO # 0.1 x10^3/uL (0.0-0.2); BASO % 1 % (0-3); EOS % 0 % (0-3); HEMATOCRIT 27.8 % (36.0-47.0); HEMOGLOBIN 9.1 g/dL (12.0-15.5); LYMPH # 0.8 x10^3/uL (1.0-4.8); LYMPH % 7 % (24-48); MEAN CORPUSCULAR HEMOGLOBIN 32 pg (25-35); MEAN CORPUSCULAR HGB CONC 33 g/dL (31-37); MEAN CORPUSCULAR VOLUME 98 fL (79-100); MONO % 8 % (0-9); NEUT # 10.1 x10^3uL (1.8-7.7); NEUT % 84 % (31-73); PLATELET COUNT 324 x10^3/uL (140-400); RED BLOOD COUNT 2.84 x10^6/uL (3.50-5.40); RED CELL DISTRIBUTION WIDTH 16.2 % (11.5-14.5)
[2017-02-09 08:32] LABS: ALBUMIN 3.1 g/dL (3.4-5.0); ALBUMIN/GLOBULIN RATIO 0.7 (1.0-1.7); CALCIUM 9.2 mg/dL (8.5-10.1); CREATININE 2.5 mg/dL (0.6-1.0); GFR 18.3; POTASSIUM 5.2 mmol/L (3.5-5.1); TOTAL BILIRUBIN 0.4 mg/dL (0.2-1.0); TOTAL PROTEIN 7.7 g/dL (6.4-8.2)
[2017-02-09] MEDS: DOCUSATE SODIUM 100 MG CAPSULE PO SCH (08:35)
[2017-02-09] MEDS: GLIPIZIDE 5 MG TABLET PO SCH (08:35)
[2017-02-09] MEDS: LISINOPRIL 20 MG TABLET PO SCH (08:35)
[2017-02-09] MEDS: GABAPENTIN 300 MG CAPSULE. PO SCH ×3 (08:35→20:57)
[2017-02-09] MEDS: NYSTATIN TOPICAL POWDER 30GM BOTTLE. TP SCH ×2 (08:36→20:57)
[2017-02-09] MEDS: FUROSEMIDE 40 MG TABLET PO SCH (08:36)
[2017-02-09] MEDS: POTASSIUM CHLORIDE 10 MEQ TABLET.ER. PO SCH (08:36)
[2017-02-09] MEDS: HYDROCODONE/APAP 5/325MG TABLET. PO PRN ×2 (08:38→20:57)
[2017-02-09] MEDS: ACETAMINOPHEN 500 MG TABLET PO PRN (13:19)
[2017-02-09 15:19] VITALS: BP 119/63
[2017-02-09 19:30] VITALS: BP 151/73
[2017-02-10] MEDS: IPRATRPIUM/ALBUTEROL 0.5/2.5MG 3 ML NEBU. NEB PRN ×2 (04:53→09:32)
[2017-02-10 05:35] VITALS: BP 152/70
[2017-02-10] MEDS: HYDROCODONE/APAP 5/325MG TABLET. PO PRN (08:19)
[2017-02-10] MEDS: LISINOPRIL 20 MG TABLET PO SCH (08:20)
[2017-02-10] MEDS: GLIPIZIDE 5 MG TABLET PO SCH (08:20)
[2017-02-10] MEDS: DOCUSATE SODIUM 100 MG CAPSULE PO SCH (08:20)
[2017-02-10] MEDS: FUROSEMIDE 40 MG TABLET PO SCH (08:20)
[2017-02-10] MEDS: NYSTATIN TOPICAL POWDER 30GM BOTTLE. TP SCH (08:20)
[2017-02-10] MEDS: POTASSIUM CHLORIDE 10 MEQ TABLET.ER. PO SCH (08:20)
[2017-02-10] MEDS: GABAPENTIN 300 MG CAPSULE. PO SCH (08:20)
[2017-02-10 09:32] VITALS: BP 179/67
[2017-02-10] MEDS ORDERED: MORPHINE SULFATE 2 MG/ML DISP.SYRIN. IV PRN (09:45)
[2017-02-10] MEDS ORDERED: FUROSEMIDE 40 MG/4 ML VIAL IVP ONE (10:00)
[2017-02-10 10:26] VITALS: BP 117/66
[2017-02-10 10:29] LABS: BASO # 0.1 x10^3/uL (0.0-0.2); BASO % 1 % (0-3); EOS % 0 % (0-3); HEMATOCRIT 26.2 % (36.0-47.0); HEMOGLOBIN 8.5 g/dL (12.0-15.5); LYMPH % 8 % (24-48); MEAN CORPUSCULAR HEMOGLOBIN 32 pg (25-35); MEAN CORPUSCULAR HGB CONC 32 g/dL (31-37); MEAN CORPUSCULAR VOLUME 99 fL (79-100); MONO # 1.3 x10^3/uL (0.0-1.1); MONO % 11 % (0-9); NEUT # 9.3 x10^3uL (1.8-7.7); NEUT % 80 % (31-73); PLATELET COUNT 322 x10^3/uL (140-400); RED BLOOD COUNT 2.64 x10^6/uL (3.50-5.40); RED CELL DISTRIBUTION WIDTH 16.4 % (11.5-14.5); WHITE BLOOD COUNT 11.7 x10^3/uL (4.0-11.0)
--- NOTE | 2017-02-10 10:41 | RAD ---
EXAM: Chest, single view. HISTORY: Shortness of breath. COMPARISON: 02/06/2017. FINDINGS: A frontal view of the chest is obtained. There is new infiltrate within the right upper lobe. This is superimposed on stable diffuse interstitial opacity. There is no effusion or pneumothorax. There is stable mild enlargement of the cardiac silhouette, a component of which is due to portable technique. IMPRESSION: Suspected right upper lobe infiltrate, new compared to the prior study. Follow-up to confirm resolution.
[2017-02-10 10:50] LABS: ALBUMIN 2.8 g/dL (3.4-5.0); ALBUMIN/GLOBULIN RATIO 0.6 (1.0-1.7); CALCIUM 8.9 mg/dL (8.5-10.1); CREATININE 2.3 mg/dL (0.6-1.0); GFR 20.2; TOTAL BILIRUBIN 0.3 mg/dL (0.2-1.0); TOTAL PROTEIN 7.3 g/dL (6.4-8.2)
[2017-02-10] MEDS ORDERED: CEFTRIAXONE SODIUM 1 GM in IV NORMAL SALINE 50ML 50 ML IV SCH (11:15)
[2017-02-10] MEDS ORDERED: IV NORMAL SALINE 250ML 250 ML ONE (11:49)
[2017-02-10] MEDS ORDERED: CEFT1VIA6 IV (12:42)
[2017-02-10] MEDS ORDERED: AZTR1VIA2 IV (12:42)
[2017-02-10] MEDS ORDERED: HYDR-2666 PO (12:42)
[2017-02-10] MEDS ORDERED: DOCU100C5 PO (12:42)
[2017-02-10] MEDS ORDERED: NYST30PO9 TP (12:43)
[2017-02-10] MEDS ORDERED: LEVO750T5 PO (12:43)
[2017-02-10] MEDS ORDERED: MORP2SYR IV (12:43)
[2017-02-10] MEDS ORDERED: IPRA3AMP NEB (12:43)
[2017-02-10] MEDS ORDERED: AZTREONAM 1 GM in IV NORMAL SALINE 50ML 50 ML IV SCH (21:00)
[2017-02-19] MEDS ORDERED: BENZ100C2 PO (17:30)
[2017-02-19] MEDS ORDERED: GUAI600T38 PO (17:33)
[2017-02-19] MEDS ORDERED: LEVO500T38 PO (17:45)
== END 2017-02-10 13:12 | disposition short-term general hospital (02) | DRG 291 ==
LOC: 1 SOUTH 14:16
PROVIDERS: ADMIT Family Medicine; ATTEND Family Medicine
DX: I50.33 Acute on chronic diastolic (congestive) heart failure (principal); J18.9 Pneumonia, unspecified organism; J96.20 Acute and chronic respiratory failure, unspecified whether with hypoxia or hypercapnia; J44.1 Chronic obstructive pulmonary disease with (acute) exacerbation; Z68.41 Body mass index [BMI] 40.0-44.9, adult; N17.9 Acute kidney failure, unspecified; I13.0 Hypertensive heart and chronic kidney disease with heart failure and stage 1 through stage 4 chronic kidney disease, or unspecified chronic kidney disease; M19.90 Unspecified osteoarthritis, unspecified site; N18.3 Chronic kidney disease, stage 3 (moderate); E11.65 Type 2 diabetes mellitus with hyperglycemia; D64.9 Anemia, unspecified; E66.01 Morbid (severe) obesity due to excess calories; I25.10 Atherosclerotic heart disease of native coronary artery without angina pectoris; E78.00 Pure hypercholesterolemia, unspecified; I25.2 Old myocardial infarction; Z87.891 Personal history of nicotine dependence; Z86.73 Personal history of transient ischemic attack (TIA), and cerebral infarction without residual deficits; Z88.1 Allergy status to other antibiotic agents; Z88.8 Allergy status to other drugs, medicaments and biological substances
CPT/HCPCS: 36415; 71010; 80053; 80202; 82565; 82947; 83605; 83880; 85027; 94640; 94760; J1940; J1956; J3010; J3370; J3490; J7040; J7050; J7620; 97110; 97116; 97530; 97535

== ENCOUNTER 2017-02-10 13:29 | Inpatient (IN) | payer MEDICARE ==
[~2017-02-10] VITALS: Ht 154.9 cm; Wt 99.1 kg
[~2017-02-10 13:29] MED LIST changes: +AZTR1VIA2 IV; +CEFT1VIA6 IV; +DOCU100C5 PO; +IPRA3AMP NEB; +LEVO750T5 PO; +MORP2SYR IV; +NYST30PO9 TP
[2017-02-10] MEDS ORDERED: ACETAMINOPHEN 500 MG TABLET PO PRN (13:45)
[2017-02-10] MEDS ORDERED: MORPHINE SULFATE 2 MG IV PRN (13:45)
[2017-02-10] MEDS ORDERED: IPRATRPIUM/ALBUTEROL 0.5/2.5MG 3 ML NEBU. NEB PRN (13:45)
[2017-02-10] MEDS: GABAPENTIN 300 MG CAPSULE. PO SCH ×2 (14:00→19:51)
[2017-02-10] MEDS ORDERED: MORPHINE SULFATE 2 MG/ML DISP.SYRIN. IV PRN (14:00)
[2017-02-10 15:01] VITALS: BP 129/56
[2017-02-10] MEDS: AZTREONAM 1 GM in IV NORMAL SALINE 50ML 50 ML IV SCH (17:54)
[2017-02-10] MEDS: HYDROCODONE/APAP 5/325MG TABLET. PO PRN (19:51)
[2017-02-10] MEDS: NYSTATIN TOPICAL POWDER 30GM BOTTLE. TP SCH (19:53)
[2017-02-10 20:05] VITALS: BP 138/65
[2017-02-10] MEDS ORDERED: AZTREONAM 1 GM VIAL. IV SCH (21:00)
[2017-02-11] VITALS (7 sets, daily range): BP systolic 103–156; BP diastolic 53–83
[2017-02-11] MEDS ORDERED: ALBUTEROL SULFATE 2.5 MG/3 ML NEBU. NEB PRN (00:39)
[2017-02-11 01:55] LABS: BILIRUBIN,URINE NEG (NEG); CLARITY,URINE CLEAR; COLOR,URINE YELLOW; GLUCOSE,URINE NEG (NEG)
--- NOTE | 2017-02-11 01:55 | HP ---
ADMIT DATE: 02/10/2017 HISTORY OF PRESENT ILLNESS: An 86-year-old female who had recently been admitted with cellulitis to her legs . The patient became increasingly short of breath and x-ray actually showed a pneumonic process in the right upper . As a result of this, the patient was admitted to the hospital for further evaluation of her pneumonia and respiratory distress. The patient was having some difficulty breathing; there was also a possibility of the CHF bringing back on some form of CHF. The patient was admitted for IV antibiotic therapy and further evaluation on her as indicated. PAST MEDICAL HISTORY: Coronary artery disease, type 2 diabetes, hypertension, COPD, myocardial infarction, stroke, degenerative joint disease, morbid obesity, CHF, heart disease, history of stroke and [place]. SOCIAL HISTORY: The patient denies smoking, alcohol, or drug use. FAMILY HISTORY: Completely previously unremarkable. ALLERGIES: CEPHALEXIN, FAMOTIDINE, TETRACYCLINE, AND TOLMETIN. PREVIOUS MEDICATIONS: Included that of Tylenol, docusate sodium, furosemide 40 mg daily, gabapentin 300 mg t.i.d., glipizide 5 mg , DuoNeb treatments, lisinopril 20 mg a day, morphine IV p.r.n., Nystatin powder, potassium chloride p.r.n. REVIEW OF SYSTEMS: The patient denies any headaches, vision change, blurry vision, double vision. Denies any chest pain, does have shortness of breath. Denies any melena, hematochezia, hematemesis. Neurologically stable except she is just very short of breath and wheezy. PHYSICAL EXAMINATION: GENERAL: This is a very pleasant white female, very anxious and ill appearing. VITAL SIGNS: Blood pressure 130/60, respiratory rate 20, pulse 93, afebrile. The patient is on 2 liters of nasal cannula. HEENT: The patient's head was atraumatic, normocephalic. Eyes: PERRLA without jaundice. Mouth and throat were normal. NECK: Supple without JVD, carotid bruits. No thyromegaly. LUNGS: Diminished throughout, some coarse breath sounds noted. CARDIOVASCULAR: Regular sinus rhythm. ABDOMEN: Soft, nontender, no rebound or guarding. Positive bowel sounds. No hepatosplenomegaly. EXTREMITIES: No clubbing, cyanosis or edema. NEUROLOGIC: The patient was alert and oriented x 3. LABORATORY DATA: Basically unremarkable. Blood sugar was 103. Hemoglobin 8.5 and 26, white count 11,000. Sed rate elevated at 40. Sodium and potassium 139 and 5, BUN and creatinine 54 and 2.3, glucose 176. Lactic acid normal, slight elevation of AST of 46. C-reactive protein elevated. The patient will be admitted for further evaluation and treatment thereof and make further assessment on her as indicated. IMPRESSION: Pneumonia of unspecified etiology, community acquired, congestive heart failure, acute on top of chronic diastolic heart failure, probably precipitated by the pneumonia, type 2 diabetes, morbid obesity. PLAN: Continue with IV antibiotic therapy, placed her on sepsis pathway, make further evaluation on her as indicated. TERESA OWENS MD DR: TAMMY/lucina JOB#: [id number] / [id number]
[2017-02-11 01:56] LABS: BACTERIA,URINE FEW /HPF (0-FEW); NITRITE,URINE NEG (NEG); RBC,URINE 0 /HPF (0-2); SQUAMOUS EPITHELIAL CELL,UR FEW /LPF; UROBILINOGEN,URINE 0.2 mg/dL (0.2 mg/dL); WBC,URINE OCC /HPF (0-4)
[2017-02-11] MEDS: AZTREONAM 1 GM in IV NORMAL SALINE 50ML 50 ML IV SCH ×2 (05:18→17:51)
[2017-02-11] MEDS ORDERED: IPRATRPIUM/ALBUTEROL 0.5/2.5MG 3 ML NEBU. ONE (05:18)
[2017-02-11] MEDS: IPRATRPIUM/ALBUTEROL 0.5/2.5MG 3 ML NEBU. NEB SCH ×4 (05:20→20:11)
[2017-02-11 06:46] LABS: BASO % 0 % (0-3); EOS # 0.1 x10^3/uL (0.0-0.7); EOS % 1 % (0-3); HEMATOCRIT 25.1 % (36.0-47.0); HEMOGLOBIN 8.2 g/dL (12.0-15.5); LYMPH # 1.2 x10^3/uL (1.0-4.8); LYMPH % 10 % (24-48); MEAN CORPUSCULAR HEMOGLOBIN 32 pg (25-35); MEAN CORPUSCULAR HGB CONC 33 g/dL (31-37); MEAN CORPUSCULAR VOLUME 97 fL (79-100); MONO # 1.9 x10^3/uL (0.0-1.1); MONO % 15 % (0-9); NEUT # 9.3 x10^3uL (1.8-7.7); NEUT % 74 % (31-73); PLATELET COUNT 301 x10^3/uL (140-400); RED BLOOD COUNT 2.57 x10^6/uL (3.50-5.40); RED CELL DISTRIBUTION WIDTH 16.1 % (11.5-14.5); WHITE BLOOD COUNT 12.5 x10^3/uL (4.0-11.0)
[2017-02-11 07:08] LABS: ALBUMIN 2.6 g/dL (3.4-5.0); ALBUMIN/GLOBULIN RATIO 0.6 (1.0-1.7); CALCIUM 9.1 mg/dL (8.5-10.1); CREATININE 2.5 mg/dL (0.6-1.0); GFR 18.3; POTASSIUM 4.7 mmol/L (3.5-5.1); TOTAL BILIRUBIN 0.4 mg/dL (0.2-1.0); TOTAL PROTEIN 7.2 g/dL (6.4-8.2)
[2017-02-11] MEDS: LISINOPRIL 20 MG TABLET PO SCH (08:56)
[2017-02-11] MEDS: FUROSEMIDE 40 MG/4 ML VIAL IVP SCH (08:58)
[2017-02-11] MEDS: POTASSIUM CHLORIDE 10 MEQ TABLET.ER. PO SCH (08:58)
[2017-02-11] MEDS: DOCUSATE SODIUM 100 MG CAPSULE PO SCH (08:58)
[2017-02-11] MEDS: GLIPIZIDE 5 MG TABLET PO SCH (08:58)
[2017-02-11] MEDS: NYSTATIN TOPICAL POWDER 30GM BOTTLE. TP SCH ×2 (08:58→21:40)
[2017-02-11] MEDS: GABAPENTIN 300 MG CAPSULE. PO SCH ×3 (08:58→21:40)
--- NOTE | 2017-02-11 09:13 | PDOC2 ---
NEELIMA TRACEY AGRICULTURAL COMMODITIES INSPECTOR 02/11/17 0913: CONSULT Date of Admission DATE: 02/11/17 TIME: 09:09 Reason for Consult: CHF History of Present Illness Ms Tesfaye is an 86 year old female who presented to her PCP with progressive shortness of breath. She reports shortness of breath worsening over several days with complaints of cough and fever. She denies chest pain but complains of edema, worse than her normal. She denies palpitations, lightheadedness or syncope. Past Medical History Echo 08/2015 <Conclusion> Technically difficult study. Grossly normal wall motion and ejection fraction of 60% No significant valvular abnormalities. Coronary artery disease, type 2 diabetes, hypertension, COPD, myocardial infarction, stroke, degenerative joint disease, morbid obesity, pyelonephritis, nephrolithiasis, CKD stage 3, CHF, heart disease, history of stroke and MD. Past Surgical History: Cholecystectomy Family History non contributory secondary to age Social History prior smoker, quit > 5years ago, no significant ETOH, no illicit drug use Current Medications Current Medications Acetaminophen (Tylenol) 1,000 mg PRN QID PRN PO MILD PAIN / TEMP; Start at 13:45 Aztreonam (Azactam) 1 gm Q12HR IV ; Start 02/10/17 at 21:00; Status Cancel Docusate Sodium (Colace) 100 mg DAILY PO Last administered on 02/11/17 08:58; Start 02/11/17 at 09:00 Gabapentin (Neurontin) 300 mg TID PO Last administered on 02/11/17 08:58; Start 02/10/17 at 14:00 Glipizide (Glucotrol) 5 mg DAILY08 PO Last administered on 02/11/17 08:58; Start 02/11/17 at 08:00 Acetaminophen/ Hydrocodone Bitart (Lortab 5/325) 2 tab PRN Q6HRS PRN PO PAIN Last administered on 02/10/17 19:51; Start 02/10/17 at 13:45 Albuterol/ Ipratropium (Duoneb) 3 ml QID PRN NEB SHORTNESS OF BREATH Last administered on 02/10/17 20:55; Start 02/10/17 at 13:45; Stop 02/11/17 at 00:39; Status DC Levofloxacin (Levaquin) 750 mg QODAY PO ; Start 02/12/17 at 09:00; Status UNV Lisinopril (Prinivil) 20 mg DAILY PO ; Start 02/11/17 at 09:00 Nystatin (Nystop) 1 radha BID TP Last administered on 02/11/17 08:58; Start at 21:00 Non-Formulary Medication 2 mg PRN Q2HR PRN IV PAIN; Start 02/10/17 at 13:45; Stop 02/10/17 at 13:58; Status DC Potassium Chloride (Klor-Con) 10 meq DAILYWBKFT PO Last administered on 08:58; Start 02/11/17 at 08:00 Furosemide 40 mg 40 mg DAILY IVP Last administered on 02/11/17 08:58; Start 02/11/17 at 09:00 Levofloxacin/ Dextrose 150 ml @ 150 mls/hr Q48H IV ; Start 02/10/17 at 14:00 Aztreonam/Sodium Chloride (Azactam/Iv Sodium Chloride 0.9% 50ml) 50 ml @ 100 mls/hr Q12H IV Last administered on 02/11/17 05:18; Start 02/10/17 at 18:00 Morphine Sulfate (Morphine 2mg Syringe) 2 mg PRN Q2HR PRN IV PAIN; Start at 14:00 Albuterol/ Ipratropium (Duoneb) 3 ml RTQID NEB Last administered on 02/11/17 05 :20; Start 02/11/17 at 08:00 Albuterol Sulfate (Ventolin) 2.5 mg PRN QID PRN NEB SHORTNESS OF BREATH; Start 02/11/17 at 00:39 Albuterol/ Ipratropium (Duoneb) 3 ml STK-MED ONCE .ROUTE ; Start 02/11/17 at 05: 18; Stop 02/11/17 at 05:19; Status DC Active Scripts Active Mapap (Acetaminophen) 500 Mg Tablet 1,000 Mg PO PRN QID PRN Reported Nystatin 15 Gm Powder 1 Radha TP BID Morphine Sulfate 2 Mg/1 Ml Syringe 2 Mg IV Q2HR PRN Levofloxacin 750 Mg Tablet 1 Tab PO QODAY Duoneb 0.5-3(2.5) Mg/3 Ml (Albuterol/Ipratropium) 3 Ml Ampul.neb 3 Ml NEB QID PRN Hydrocodone-Apap 5-325 (Hydrocodone Bit/Acetaminophen) 1 Each Tablet 2 Tab PO PRN Q6HRS PRN Docusate Sodium 100 Mg Capsule 1 Cap PO DAILY Aztreonam 1 Gm Vial 1 Gm IV Q12HR Glipizide 5 Mg Tablet 1 Tab PO DAILY08 Gabapentin 300 Mg Capsule 300 Mg PO TID Potassium Chloride 10 Meq Tablet.er 10 Meq PO DAILY Furosemide 40 Mg Tablet 1 Tab PO DAILY Lisinopril 20 Mg Tablet 1 Tab PO DAILY Allergies: Coded Allergies: cephalexin (Verified Allergy, Intermediate, 10/01/14) famotidine (Verified Allergy, Intermediate, 10/01/14) tetracycline (Verified Allergy, Intermediate, 10/01/14) tolmetin (Verified Allergy, Intermediate, 10/01/14) General: YES: Fatigue Respiratory: YES: Cough, Shortness of breath Cardiovascular: yes: Edema General: Alert, Oriented X3, mild distress HEENT: Atraumatic, EOMI Lungs: Other (coarse with expiratory wheezes and basilar crackles) Heart: Normal S1, Normal S2, Other (no gallops) Abdomen: Normal bowel sounds, Soft, No tenderness Extremities: No cyanosis, Other (chronic lower extremtiy edema. ) Neuro: Normal speech Psych/Mental Status: Mental status NL, Mood NL VITALS Vital Signs Date Time Temp Pulse Resp B/P Pulse Ox O2 Delivery O2 Flow Rate FiO2 02/11/17 08:57 99.1 94 20 116/83 95 Nasal Cannula 2.0 Labs Laboratory Tests Test 02/10/17 21:08 02/11/17 00:50 02/11/17 06:29 02/11/17 07:10 Glucose (Fingerstick) 103mg/dL (70-99) 95mg/dL (70-99) Urine Collection Type Unknown Urine Color Yellow Urine Clarity Clear Urine pH 5.0 Urine Specific [place] 1.010 Urine Protein 30 mg/dl (NEG-TRACE) Urine Glucose (UA) Negmg/dL (NEG) Urine Ketones (Stick) Negmg/dL (NEG) Urine Blood Mod (NEG) Urine Nitrite Neg (NEG) Urine Bilirubin Neg (NEG) Urine Urobilinogen Dipstick 0.2mg/dL (0.2 mg/dL) Urine Leukocyte Esterase Neg (NEG) Urine RBC 0/HPF (0-2) Urine WBC Occ/HPF (0-4) Urine Squamous Epithelial Cells Few/LPF Urine Bacteria Few/HPF (0-FEW) White Blood Count 12.5x10^3/uL (4.0-11.0) Red Blood Count 2.57x10^6/uL (3.50-5.40) Hemoglobin 8.2g/dL (12.0-15.5) Hematocrit 25.1% (36.0-47.0) Mean Corpuscular Volume 97fL (79-100) Mean Corpuscular Hemoglobin 32pg (25-35) Mean Corpuscular Hemoglobin Concent 33g/dL (31-37) Red Cell Distribution Width 16.1% (11.5-14.5) Platelet Count 301x10^3/uL (140-400) Neutrophils (%) (Auto) 74% (31-73) Lymphocytes (%) (Auto) 10% (24-48) Monocytes (%) (Auto) 15% (0-9) Eosinophils (%) (Auto) 1% (0-3) Basophils (%) (Auto) 0% (0-3) Neutrophils # (Auto) 9.3x10^3uL (1.8-7.7) Lymphocytes # (Auto) 1.2x10^3/uL (1.0-4.8) Monocytes # (Auto) 1.9x10^3/uL (0.0-1.1) Eosinophils # (Auto) 0.1x10^3/uL (0.0-0.7) Basophils # (Auto) 0.0x10^3/uL (0.0-0.2) Sodium Level 141mmol/L (136-145) Potassium Level 4.7mmol/L (3.5-5.1) Chloride Level 106mmol/L (98-107) Carbon Dioxide Level 25mmol/L (21-32) Anion Gap 10 (6-14) Blood Urea Nitrogen 54mg/dL (7-20) Creatinine 2.5mg/dL (0.6-1.0) Estimated GFR (Cockcroft-Gault) 18.3 BUN/Creatinine Ratio 22 (6-20) Glucose Level 98mg/dL (70-99) Calcium Level 9.1mg/dL (8.5-10.1) Total Bilirubin 0.4mg/dL (0.2-1.0) Aspartate Amino Transf (AST/SGOT) 46U/L (15-37) Alanine Aminotransferase (ALT/SGPT) 42U/L (14-59) Alkaline Phosphatase 128U/L (46-116) Total Protein 7.2g/dL (6.4-8.2) Albumin 2.6g/dL (3.4-5.0) Albumin/Globulin Ratio 0.6 (1.0-1.7) Images CXR - IMPRESSION: Suspected right upper lobe infiltrate, new compared to the prior study. Follow-up to confirm resolution. Assessment/Plan 1. acute on chronic respiratory insufficiency, multifactorial pneumonia / COPD exacerbation - abx, resp tx, per PCP mild acute on chronic, likely diastolic HF - will check BNP, repeat CXR and check echocardiogram. anemia 2. Acute on chronic renal failure - baseline Cr appears to be about 1.7, currently 2.5. 3. hypertension - controlled 4. diabetes mellitus type 2 - per PCP Problems: HUNTER VERA MD 02/11/17 1632: CONSULT Allergies: Coded Allergies: cephalexin (Verified Allergy, Intermediate, 10/01/14) famotidine (Verified Allergy, Intermediate, 10/01/14) tetracycline (Verified Allergy, Intermediate, 10/01/14) tolmetin (Verified Allergy, Intermediate, 10/01/14) Assessment/Plan Patient seen and examined Acute on chronic respiratory failure. History of COPD and now pneumonia. On antibiotics and being treated with pulmonary medications. Acute on chronic probable diastolic heart failure. Patient being diuresed but creatinine is increasing. We'll continue present medications and check an echocardiogram. Acute on chronic renal insufficiency. Creatinine elevated 2.5. Patient being diuresed and will monitor her creatinine level. Hypertension. We'll adjust medications as needed. Diabetes mellitus as per the primary service. Thank you for allowing us to participate in the care of your patient. Problems: NEELIMA TRACEY APRN Feb 11, 2017 09:13 HUNTER VERA MD Feb 11, 2017 16:32
--- NOTE | 2017-02-11 10:59 | RAD ---
Exam: AP portable chest. History: Congestive heart failure. Comparison: 02/10/2017. Findings: Cardiac silhouette appears within normal limits for size. Aortic atherosclerosis is seen. Pulmonary vascularity appears at the upper limits of normal. There is interval increase in the right upper lobe infiltrate, compatible with worsening pneumonia. There may be additional component either in the lateral right middle lobe or right lower lobe. Impression: 1. Interval worsening of right airspace disease, favored to be pneumonia
--- NOTE | 2017-02-11 12:58 | EKG ---
[address] [address] Test Date: 2017-02-11 Test Time: 11:02:58 Pat Name: DANIELLA GONZALES Department: Room: 115 A Gender: F Maintenance Repairer: JORDAN : 1930 Requested By: NEELIMA TRACEY Order Number: [id number] Reading MD: Measurements Intervals [place] Rate: 89 P: 30 [place]: 208 QRS: -5 QRSD: 70 T: 47 QT: 338 QTc: 417 Interpretive Statements SINUS RHYTHM LEFTWARD AXIS NON SPECIFIC T ABNORMALITY RI6.01 Unconfirmed report No previous ECG available for comparison
[2017-02-11] MEDS ORDERED: PIP/TAZO PER PHARMACY MC PRN (19:15)
[2017-02-11] MEDS: PIPERACILLIN/TAZOBACTAM 2.25 GM in IV NORMAL SALINE 50ML 50 ML IV SCH (21:40)
--- NOTE | 2017-02-12 02:19 | PN ---
DATE: 02/11/2017 SUBJECTIVE: The patient is an 86-year-old female admitted with pneumonia. The patient has been having some difficulty with breathing, we put her on double antibiotics and checked her accordingly. The patient's x-ray today shows some worsening of that chest x-ray. Consequently, we will go ahead and place her, try to see if pharmacy will agree to putting her on Zosyn instead of the Azactam to get broader spectrum coverage along with the Levaquin, make adjustments on renal function course; however, since she is not doing as well with the Azactam I think we need to try something broader spectrum for now. Her temperature is up to 101.7 (MC), pulse 110, obviously she is in sepsis. OBJECTIVE: GENERAL: The patient is alert. LUNGS: Coarse breath sounds. CARDIOVASCULAR: Tachycardic. ABDOMEN: Protuberant, nontender. EXTREMITIES: No clubbing, cyanosis, or edema. We will go ahead and continue to try the Zosyn instead of Azactam, change her antibiotics around, consider for possible transport as well to a larger facility as well. IMPRESSION: Pneumonia of unspecified etiology, sepsis, anemia of chronic disease, chronic kidney disease 3, congestive heart failure acute on top of chronic diastolic heart failure, probably secondary from the pneumonia itself. TERESA OWENS MD DR: TAMMY/lucina JOB#: [id number] / [id number]
[2017-02-12] MEDS: PIPERACILLIN/TAZOBACTAM 2.25 GM in IV NORMAL SALINE 50ML 50 ML IV SCH ×2 (02:30→08:59)
[2017-02-12] MEDS: IPRATRPIUM/ALBUTEROL 0.5/2.5MG 3 ML NEBU. NEB SCH ×2 (05:40→09:46)
[2017-02-12 05:50] VITALS: BP 114/58
[2017-02-12 06:01] LABS: BASO # 0.1 x10^3/uL (0.0-0.2); BASO % 1 % (0-3); EOS # 0.1 x10^3/uL (0.0-0.7); EOS % 1 % (0-3); HEMATOCRIT 28.1 % (36.0-47.0); HEMOGLOBIN 8.9 g/dL (12.0-15.5); LYMPH # 1.1 x10^3/uL (1.0-4.8); LYMPH % 9 % (24-48); MEAN CORPUSCULAR HEMOGLOBIN 31 pg (25-35); MEAN CORPUSCULAR HGB CONC 32 g/dL (31-37); MEAN CORPUSCULAR VOLUME 98 fL (79-100); MONO # 1.8 x10^3/uL (0.0-1.1); MONO % 14 % (0-9); NEUT # 9.3 x10^3uL (1.8-7.7); NEUT % 76 % (31-73); PLATELET COUNT 323 x10^3/uL (140-400); RED BLOOD COUNT 2.86 x10^6/uL (3.50-5.40); RED CELL DISTRIBUTION WIDTH 15.8 % (11.5-14.5); WHITE BLOOD COUNT 12.3 x10^3/uL (4.0-11.0)
[2017-02-12 06:10] LABS: CALCIUM 9.2 mg/dL (8.5-10.1); CREATININE 2.6 mg/dL (0.6-1.0); GFR 17.5; POTASSIUM 4.4 mmol/L (3.5-5.1)
[2017-02-12] MEDS: GLIPIZIDE 5 MG TABLET PO SCH (07:54)
[2017-02-12] MEDS: POTASSIUM CHLORIDE 10 MEQ TABLET.ER. PO SCH (07:55)
[2017-02-12 08:00] VITALS: BP 134/87
--- NOTE | 2017-02-12 08:59 | PDOC ---
PROGRESS NOTES Assessment 1. acute on chronic respiratory insufficiency, multifactorial pneumonia / COPD exacerbation - abx, resp tx, per PCP mild acute on chronic, likely diastolic HF - echo pending anemia 2. Acute on chronic renal failure - baseline Cr appears to be about 1.7, currently 2.6. 3. hypertension - controlled 4. diabetes mellitus type 2 - per PCP Mild vascular prominence by CXR with continued pneumonia. Inaccurate I/O due to incontinence. Echo pending. Consider pulmonary and renal consults. Continue supportive care. Problems: Subjective Continued dyspnea with minimal activity. no chest pain. no significant change in edema. Objective Vital Signs Date Time Temp Pulse Resp B/P Pulse Ox O2 Delivery O2 Flow Rate FiO2 02/12/17 08:00 98.3 90 24 134/87 95 Nasal Cannula 2.0 Intake and Output 02/12/17 07:00 Intake Total 1082 ml Output Total 350 ml Balance 732 ml Intake Oral 940 ml IV Total 142 ml Output Urine Total 350 ml # Voids 1 # Bowel Movements 2 Abdomen: Normal bowel sounds, Soft, No tenderness Heart: Normal S1, Normal S2, Other (no gallops) Extremities: No cyanosis, Other (+ chronic edema, unchanged) General: Alert, Oriented X3, Cooperative, mild distress Lungs: Other (decreased bases o/w coarse with expiratory wheezing) Neuro: Normal speech Psych/Mental Status: Mental status NL, Mood NL Review of Relevant I have reviewed the following items osiris (where applicable) has been applied. Labs Laboratory Tests Test 02/10/17 10:17 02/10/17 21:08 02/11/17 00:50 02/11/17 06:29 Mycoplasma Serology (LAB) Negative (NEGATIVE) Glucose (Fingerstick) 103mg/dL (70-99) Urine Collection Type Unknown Urine Color Yellow Urine Clarity Clear Urine pH 5.0 Urine Specific [place] 1.010 Urine Protein 30 mg/dl (NEG-TRACE) Urine Glucose (UA) Negmg/dL (NEG) Urine Ketones (Stick) Negmg/dL (NEG) Urine Blood Mod (NEG) Urine Nitrite Neg (NEG) Urine Bilirubin Neg (NEG) Urine Urobilinogen Dipstick 0.2mg/dL (0.2 mg/dL) Urine Leukocyte Esterase Neg (NEG) Urine RBC 0/HPF (0-2) Urine WBC Occ/HPF (0-4) Urine Squamous Epithelial Cells Few/LPF Urine Bacteria Few/HPF (0-FEW) White Blood Count 12.5x10^3/uL (4.0-11.0) Red Blood Count 2.57x10^6/uL (3.50-5.40) Hemoglobin 8.2g/dL (12.0-15.5) Hematocrit 25.1% (36.0-47.0) Mean Corpuscular Volume 97fL (79-100) Mean Corpuscular Hemoglobin 32pg (25-35) Mean Corpuscular Hemoglobin Concent 33g/dL (31-37) Red Cell Distribution Width 16.1% (11.5-14.5) Platelet Count 301x10^3/uL (140-400) Neutrophils (%) (Auto) 74% (31-73) Lymphocytes (%) (Auto) 10% (24-48) Monocytes (%) (Auto) 15% (0-9) Eosinophils (%) (Auto) 1% (0-3) Basophils (%) (Auto) 0% (0-3) Neutrophils # (Auto) 9.3x10^3uL (1.8-7.7) Lymphocytes # (Auto) 1.2x10^3/uL (1.0-4.8) Monocytes # (Auto) 1.9x10^3/uL (0.0-1.1) Eosinophils # (Auto) 0.1x10^3/uL (0.0-0.7) Basophils # (Auto) 0.0x10^3/uL (0.0-0.2) Sodium Level 141mmol/L (136-145) Potassium Level 4.7mmol/L (3.5-5.1) Chloride Level 106mmol/L (98-107) Carbon Dioxide Level 25mmol/L (21-32) Anion Gap 10 (6-14) Blood Urea Nitrogen 54mg/dL (7-20) Creatinine 2.5mg/dL (0.6-1.0) Estimated GFR (Cockcroft-Gault) 18.3 BUN/Creatinine Ratio 22 (6-20) Glucose Level 98mg/dL (70-99) Calcium Level 9.1mg/dL (8.5-10.1) Total Bilirubin 0.4mg/dL (0.2-1.0) Aspartate Amino Transf (AST/SGOT) 46U/L (15-37) Alanine Aminotransferase (ALT/SGPT) 42U/L (14-59) Alkaline Phosphatase 128U/L (46-116) NG-Sbs-G-Type Natriuretic Peptide 4824pg/mL (0-449) Total Protein 7.2g/dL (6.4-8.2) Albumin 2.6g/dL (3.4-5.0) Albumin/Globulin Ratio 0.6 (1.0-1.7) Test 02/11/17 07:10 02/11/17 11:43 02/11/17 16:52 02/11/17 21:44 Glucose (Fingerstick) 95mg/dL (70-99) 117mg/dL (70-99) 69mg/dL (70-99) 168mg/dL (70-99) Test 02/12/17 05:50 02/12/17 07:38 White Blood Count 12.3x10^3/uL (4.0-11.0) Red Blood Count 2.86x10^6/uL (3.50-5.40) Hemoglobin 8.9g/dL (12.0-15.5) Hematocrit 28.1% (36.0-47.0) Mean Corpuscular Volume 98fL (79-100) Mean Corpuscular Hemoglobin 31pg (25-35) Mean Corpuscular Hemoglobin Concent 32g/dL (31-37) Red Cell Distribution Width 15.8% (11.5-14.5) Platelet Count 323x10^3/uL (140-400) Neutrophils (%) (Auto) 76% (31-73) Lymphocytes (%) (Auto) 9% (24-48) Monocytes (%) (Auto) 14% (0-9) Eosinophils (%) (Auto) 1% (0-3) Basophils (%) (Auto) 1% (0-3) Neutrophils # (Auto) 9.3x10^3uL (1.8-7.7) Lymphocytes # (Auto) 1.1x10^3/uL (1.0-4.8) Monocytes # (Auto) 1.8x10^3/uL (0.0-1.1) Eosinophils # (Auto) 0.1x10^3/uL (0.0-0.7) Basophils # (Auto) 0.1x10^3/uL (0.0-0.2) Sodium Level 142mmol/L (136-145) Potassium Level 4.4mmol/L (3.5-5.1) Chloride Level 104mmol/L (98-107) Carbon Dioxide Level 27mmol/L (21-32) Anion Gap 11 (6-14) Blood Urea Nitrogen 51mg/dL (7-20) Creatinine 2.6mg/dL (0.6-1.0) Estimated GFR (Cockcroft-Gault) 17.5 Glucose Level 125mg/dL (70-99) Calcium Level 9.2mg/dL (8.5-10.1) Glucose (Fingerstick) 123mg/dL (70-99) Medications Current Medications Acetaminophen (Tylenol) 1,000 mg PRN QID PRN PO MILD PAIN / TEMP Last administered on 02/11/17 19:00; Start 02/10/17 at 13:45 Aztreonam (Azactam) 1 gm Q12HR IV ; Start 02/10/17 at 21:00; Status Cancel Docusate Sodium (Colace) 100 mg DAILY PO Last administered on 02/11/17 08:58; Start 02/11/17 at 09:00 Gabapentin (Neurontin) 300 mg TID PO Last administered on 02/11/17 21:40; Start 02/10/17 at 14:00 Glipizide (Glucotrol) 5 mg DAILY08 PO Last administered on 02/12/17 07:54; Start 02/11/17 at 08:00 Acetaminophen/ Hydrocodone Bitart (Lortab 5/325) 2 tab PRN Q6HRS PRN PO PAIN Last administered on 02/10/17 19:51; Start 02/10/17 at 13:45 Albuterol/ Ipratropium (Duoneb) 3 ml QID PRN NEB SHORTNESS OF BREATH Last administered on 02/10/17 20:55; Start 02/10/17 at 13:45; Stop 02/11/17 at 00:39; Status DC Levofloxacin (Levaquin) 750 mg QODAY PO ; Start 02/12/17 at 09:00; Status UNV Lisinopril (Prinivil) 20 mg DAILY PO ; Start 02/11/17 at 09:00 Nystatin (Nystop) 1 radha BID TP Last administered on 02/11/17 21:40; Start at 21:00 Non-Formulary Medication 2 mg PRN Q2HR PRN IV PAIN; Start 02/10/17 at 13:45; Stop 02/10/17 at 13:58; Status DC Potassium Chloride (Klor-Con) 10 meq DAILYWBKFT PO Last administered on 07:55; Start 02/11/17 at 08:00 Furosemide 40 mg 40 mg DAILY IVP Last administered on 02/11/17 08:58; Start 02/11/17 at 09:00 Levofloxacin/ Dextrose 150 ml @ 150 mls/hr Q48H IV ; Start 02/10/17 at 14:00 Aztreonam/Sodium Chloride (Azactam/Iv Sodium Chloride 0.9% 50ml) 50 ml @ 100 mls/hr Q12H IV Last administered on 02/11/17 17:51; Start 02/10/17 at 18:00; Stop 02/11/17 at 19:06; Status DC Morphine Sulfate (Morphine 2mg Syringe) 2 mg PRN Q2HR PRN IV PAIN; Start at 14:00 Albuterol/ Ipratropium (Duoneb) 3 ml RTQID NEB Last administered on 02/12/17 05 :40; Start 02/11/17 at 08:00 Albuterol Sulfate (Ventolin) 2.5 mg PRN QID PRN NEB SHORTNESS OF BREATH; Start 02/11/17 at 00:39 Albuterol/ Ipratropium (Duoneb) 3 ml STK-MED ONCE .ROUTE ; Start 02/11/17 at 05: 18; Stop 02/11/17 at 05:19; Status DC Piperacillin Sod/ Tazobactam Sod 1 each 1 each PRN DAILY PRN MC SEE COMMENTS; Start 02/11/17 at 19:15 Piperacillin Sod/ Tazobactam Sod/ Sodium Chloride (Zosyn/Iv Sodium Chloride 0.9 % 50ml) 50 ml @ 100 mls/hr Q6H IV Last administered on 02/12/17 02:30; Start 02/11/17 at 21:00 Active Scripts Active Mapap (Acetaminophen) 500 Mg Tablet 1,000 Mg PO PRN QID PRN Reported Nystatin 15 Gm Powder 1 Radha TP BID Morphine Sulfate 2 Mg/1 Ml Syringe 2 Mg IV Q2HR PRN Levofloxacin 750 Mg Tablet 1 Tab PO QODAY Duoneb 0.5-3(2.5) Mg/3 Ml (Albuterol/Ipratropium) 3 Ml Ampul.neb 3 Ml NEB QID PRN Hydrocodone-Apap 5-325 (Hydrocodone Bit/Acetaminophen) 1 Each Tablet 2 Tab PO PRN Q6HRS PRN Docusate Sodium 100 Mg Capsule 1 Cap PO DAILY Aztreonam 1 Gm Vial 1 Gm IV Q12HR Glipizide 5 Mg Tablet 1 Tab PO DAILY08 Gabapentin 300 Mg Capsule 300 Mg PO TID Potassium Chloride 10 Meq Tablet.er 10 Meq PO DAILY Furosemide 40 Mg Tablet 1 Tab PO DAILY Lisinopril 20 Mg Tablet 1 Tab PO DAILY Vitals/I & O Vital Sign - Last 24 Hours 02/11/17 02/11/17 02/11/17 02/11/17 08:57 11:00 11:55 15:09 Temp 99.1 99.1 99.8 Pulse 94 94 95 Resp 20 18 B/P 116/83 116/83 156/59 Pulse Ox 95 95 94 94 O2 Delivery Nasal Cannula Nasal Cannula Nasal Cannula Nasal Cannula O2 Flow Rate 2.0 2.0 2.0 2.0 02/11/17 02/11/17 02/11/17 02/11/17 16:25 18:27 18:50 20:12 Temp 101.7 Pulse 110 Resp 20 B/P 155/66 Pulse Ox 94 91 93 O2 Delivery Nasal Cannula Nasal Cannula Nasal Cannula Nasal Cannula O2 Flow Rate 2.0 2.0 2.0 2.0 02/11/17 02/11/17 02/12/17 02/12/17 21:50 23:35 05:40 05:50 Temp 98.7 99.1 98.0 Pulse 91 87 82 Resp 22 22 22 B/P 103/53 114/58 Pulse Ox 93 93 96 96 O2 Delivery Nasal Cannula Nasal Cannula Nasal Cannula Nasal Cannula O2 Flow Rate 2.0 2.0 2.0 2.0 02/12/17 02/12/17 08:00 08:00 Temp 98.3 Pulse 90 Resp 24 B/P 134/87 Pulse Ox 95 O2 Delivery Nasal Cannula Nasal Cannula O2 Flow Rate 2.0 2.0 Intake and Output 02/11/17 02/11/17 02/12/17 15:00 23:00 07:00 Intake Total 921 ml 161 ml Output Total 350 ml Balance 921 ml -189 ml NEELIMA TRACEY LIFESTYLE DIRECTOR Feb 12, 2017 08:59
[2017-02-12 09:00] VITALS: BP 134/87
[2017-02-12] MEDS: DOCUSATE SODIUM 100 MG CAPSULE PO SCH (09:00)
[2017-02-12] MEDS ORDERED: LEVOFLOXACIN 750 MG TABLET PO SCH (09:00)
[2017-02-12] MEDS: LISINOPRIL 20 MG TABLET PO SCH (09:00)
[2017-02-12] MEDS: FUROSEMIDE 40 MG/4 ML VIAL IVP SCH (09:00)
[2017-02-12] MEDS: GABAPENTIN 300 MG CAPSULE. PO SCH (09:00)
[2017-02-12] MEDS: HYDROCODONE/APAP 5/325MG TABLET. PO PRN (09:01)
[2017-02-12] MEDS: NYSTATIN TOPICAL POWDER 30GM BOTTLE. TP SCH (09:04)
[2017-02-12 16:10] LABS: SPECIMEN SOURCE Urine (.)
== END 2017-02-12 11:05 | disposition short-term general hospital (02) | DRG 871 ==
LOC: 1 SOUTH 13:29
PROVIDERS: ADMIT Family Medicine; ATTEND Family Medicine
DX: A41.9 Sepsis, unspecified organism (principal); I50.33 Acute on chronic diastolic (congestive) heart failure; J18.9 Pneumonia, unspecified organism; J96.20 Acute and chronic respiratory failure, unspecified whether with hypoxia or hypercapnia; I13.0 Hypertensive heart and chronic kidney disease with heart failure and stage 1 through stage 4 chronic kidney disease, or unspecified chronic kidney disease; J44.0 Chronic obstructive pulmonary disease with (acute) lower respiratory infection; J44.1 Chronic obstructive pulmonary disease with (acute) exacerbation; N17.9 Acute kidney failure, unspecified; Z68.41 Body mass index [BMI] 40.0-44.9, adult; D63.8 Anemia in other chronic diseases classified elsewhere; E11.22 Type 2 diabetes mellitus with diabetic chronic kidney disease; E66.01 Morbid (severe) obesity due to excess calories; I25.10 Atherosclerotic heart disease of native coronary artery without angina pectoris; N18.3 Chronic kidney disease, stage 3 (moderate); R32 Unspecified urinary incontinence; Z86.73 Personal history of transient ischemic attack (TIA), and cerebral infarction without residual deficits; Z87.442 Personal history of urinary calculi; Z87.891 Personal history of nicotine dependence; I25.2 Old myocardial infarction; Z88.8 Allergy status to other drugs, medicaments and biological substances; Z79.899 Other long term (current) drug therapy
CPT/HCPCS: 36415; 71010; 80048; 80053; 81001; 82947; 83880; 85027; 86738; 87449; 93005; 94640; 94760; J1940; J2270; J2543; J3490; J7620

== ENCOUNTER 2017-02-19 16:36 | Inpatient (IN) | payer MEDICARE ==
[~2017-02-19] VITALS: Ht 167.6 cm; Wt 91.7 kg
[~2017-02-19 16:36] MED LIST changes: +ASPI-612 PO; -ASPI81TA9 PO; -CALC600T11 PO; +CALC600T23 PO; +CYCL-331 PO; -CYCL10TA2 PO; +DOCU100C28 PO; -DOCU100C5 PO; -DONE5TAB33 PO; +DONE5TAB56 PO; -HYDR-2666 PO; +HYDR-2758 PO; +NYST15PO9 TP; -NYST30PO9 TP
[2017-02-19 17:19] VITALS: BP 187/80
[2017-02-19] MEDS ORDERED: BENZ100C15 PO (17:30)
[2017-02-19] MEDS ORDERED: DARB10SY SQ (17:31)
[2017-02-19] MEDS ORDERED: GUAI600T47 PO (17:33)
[2017-02-19] MEDS ORDERED: HYDR-2867 PO (17:33)
[2017-02-19] MEDS ORDERED: MONT10TA9 PO (17:36)
[2017-02-19] MEDS ORDERED: PRED-220 PO (17:45)
[2017-02-19] MEDS ORDERED: LEVO500T59 PO (17:45)
[2017-02-19] MEDS ORDERED: hydrALAZINE 10 MG TABLET PO PRN (18:00)
[2017-02-19 19:40] VITALS: BP 181/82
[2017-02-19] MEDS: MONTELUKAST 10 MG TABLET. PO SCH (20:34)
[2017-02-19] MEDS: BENZONATATE 100 MG CAPSULE. PO SCH (20:34)
[2017-02-19] MEDS: ACETAMINOPHEN 500 MG TABLET PO PRN (20:34)
[2017-02-19] MEDS: GABAPENTIN 300 MG CAPSULE. PO SCH (20:34)
[2017-02-19] MEDS: DARBEPOETIN ALFA 60 MCG/0.3 ML DISP.SYRIN. SQ SCH (20:36)
[2017-02-19] MEDS: NYSTATIN TOPICAL POWDER 15GM BOTTLE. TP SCH (20:36)
[2017-02-20 05:20] VITALS: BP 162/52
[2017-02-20] MEDS: DOCUSATE SODIUM 100 MG CAPSULE PO SCH (08:44)
[2017-02-20] MEDS: NYSTATIN TOPICAL POWDER 15GM BOTTLE. TP SCH ×2 (08:54→20:45)
[2017-02-20] MEDS: BENZONATATE 100 MG CAPSULE. PO SCH ×3 (08:54→20:43)
[2017-02-20] MEDS: GABAPENTIN 300 MG CAPSULE. PO SCH ×2 (08:54→20:43)
[2017-02-20] MEDS: FUROSEMIDE 40 MG TABLET PO SCH (08:54)
[2017-02-20] MEDS: ACETAMINOPHEN 500 MG TABLET PO PRN ×2 (08:54→20:43)
[2017-02-20] MEDS: levoFLOXacin 250 MG TABLET PO SCH (08:55)
[2017-02-20] MEDS: LISINOPRIL 20 MG TABLET PO SCH (08:55)
[2017-02-20] MEDS: glipiZIDE 5 MG TABLET PO SCH (08:55)
[2017-02-20] MEDS: predniSONE 10 MG TABLET PO SCH (08:56)
[2017-02-20] MEDS ORDERED: predniSONE 10 MG TABLET PO SCH (09:00)
[2017-02-20 15:07] VITALS: BP 170/70
[2017-02-20 20:06] VITALS: BP 174/77
[2017-02-20] MEDS: TAMSULOSIN 0.4 MG CAP.ER.24H. PO SCH (20:43)
[2017-02-20] MEDS: MONTELUKAST 10 MG TABLET. PO SCH (20:44)
[2017-02-20] MEDS: PHENAZOPYRIDINE 100 MG TABLET. PO PRN (20:44)
[2017-02-21 05:48] VITALS: BP 159/64
[2017-02-21 06:55] LABS: BASO % 0 % (0-3); EOS % 0 % (0-3); HEMATOCRIT 30.1 % (36.0-47.0); HEMOGLOBIN 9.7 g/dL (12.0-15.5); LYMPH % 14 % (24-48); MEAN CORPUSCULAR HEMOGLOBIN 32 pg (25-35); MEAN CORPUSCULAR HGB CONC 32 g/dL (31-37); MEAN CORPUSCULAR VOLUME 99 fL (79-100); MONO # 1.2 x10^3/uL (0.0-1.1); MONO % 8 % (0-9); NEUT # 11.4 x10^3uL (1.8-7.7); NEUT % 78 % (31-73); PLATELET COUNT 283 x10^3/uL (140-400); RED BLOOD COUNT 3.06 x10^6/uL (3.50-5.40); RED CELL DISTRIBUTION WIDTH 17.1 % (11.5-14.5); WHITE BLOOD COUNT 14.7 x10^3/uL (4.0-11.0)
[2017-02-21 07:17] LABS: ALBUMIN 2.7 g/dL (3.4-5.0); ALBUMIN/GLOBULIN RATIO 0.8 (1.0-1.7); CALCIUM 8.7 mg/dL (8.5-10.1); CREATININE 1.2 mg/dL (0.6-1.0); GFR 42.7; POTASSIUM 3.5 mmol/L (3.5-5.1); TOTAL BILIRUBIN 0.5 mg/dL (0.2-1.0); TOTAL PROTEIN 6.1 g/dL (6.4-8.2)
[2017-02-21] MEDS: predniSONE 10 MG TABLET PO SCH (08:19)
[2017-02-21] MEDS: glipiZIDE 5 MG TABLET PO SCH (08:20)
[2017-02-21] MEDS: GABAPENTIN 300 MG CAPSULE. PO SCH ×2 (08:20→20:10)
[2017-02-21] MEDS: levoFLOXacin 250 MG TABLET PO SCH (08:21)
[2017-02-21] MEDS: DOCUSATE SODIUM 100 MG CAPSULE PO SCH (08:21)
[2017-02-21] MEDS: BENZONATATE 100 MG CAPSULE. PO SCH ×3 (08:22→20:11)
[2017-02-21] MEDS: TAMSULOSIN 0.4 MG CAP.ER.24H. PO SCH (08:22)
[2017-02-21] MEDS: LISINOPRIL 20 MG TABLET PO SCH (08:22)
[2017-02-21] MEDS: FUROSEMIDE 40 MG TABLET PO SCH (08:22)
[2017-02-21] MEDS: NYSTATIN TOPICAL POWDER 15GM BOTTLE. TP SCH ×2 (08:24→20:12)
[2017-02-21 19:48] VITALS: BP 173/78
[2017-02-21] MEDS: MONTELUKAST 10 MG TABLET. PO SCH (20:10)
[2017-02-21] MEDS: PHENAZOPYRIDINE 100 MG TABLET. PO PRN (20:11)
[2017-02-22 00:42] LABS: BACTERIA,URINE 0 /HPF (0-FEW); BILIRUBIN,URINE NEG (NEG); CLARITY,URINE CLEAR; COLOR,URINE YELLOW; GLUCOSE,URINE 100 mg/dL (NEG); NITRITE,URINE POS (NEG); RBC,URINE 0 /HPF (0-2); SQUAMOUS EPITHELIAL CELL,UR FEW /LPF; UROBILINOGEN,URINE 0.2 mg/dL (0.2 mg/dL); WBC,URINE OCC /HPF (0-4); YEAST,URINE PRESENT /HPF
[2017-02-22 06:34] VITALS: BP 160/81
[2017-02-22] MEDS: FUROSEMIDE 40 MG TABLET PO SCH (08:15)
[2017-02-22] MEDS: glipiZIDE 5 MG TABLET PO SCH (08:15)
[2017-02-22] MEDS: DOCUSATE SODIUM 100 MG CAPSULE PO SCH (08:15)
[2017-02-22] MEDS: TAMSULOSIN 0.4 MG CAP.ER.24H. PO SCH (08:15)
[2017-02-22] MEDS: GABAPENTIN 300 MG CAPSULE. PO SCH ×2 (08:16→20:18)
[2017-02-22] MEDS: levoFLOXacin 250 MG TABLET PO SCH (08:16)
[2017-02-22] MEDS: LISINOPRIL 20 MG TABLET PO SCH (08:17)
[2017-02-22] MEDS: predniSONE 10 MG TABLET PO SCH (08:17)
[2017-02-22] MEDS: BENZONATATE 100 MG CAPSULE. PO SCH ×3 (08:17→20:18)
[2017-02-22] MEDS: NYSTATIN TOPICAL POWDER 15GM BOTTLE. TP SCH ×2 (08:18→20:18)
[2017-02-22 15:36] VITALS: BP 168/51
[2017-02-22] MEDS: MONTELUKAST 10 MG TABLET. PO SCH (20:17)
[2017-02-23 06:25] VITALS: BP 122/60
[2017-02-23] MEDS: TAMSULOSIN 0.4 MG CAP.ER.24H. PO SCH (08:22)
[2017-02-23] MEDS: GABAPENTIN 300 MG CAPSULE. PO SCH ×2 (08:22→20:12)
[2017-02-23] MEDS: levoFLOXacin 250 MG TABLET PO SCH (08:22)
[2017-02-23] MEDS: predniSONE 10 MG TABLET PO SCH (08:22)
[2017-02-23] MEDS: BENZONATATE 100 MG CAPSULE. PO SCH ×3 (08:23→20:12)
[2017-02-23] MEDS: LISINOPRIL 20 MG TABLET PO SCH (08:23)
[2017-02-23] MEDS: glipiZIDE 5 MG TABLET PO SCH (08:23)
[2017-02-23] MEDS: FUROSEMIDE 40 MG TABLET PO SCH (08:23)
[2017-02-23] MEDS: DOCUSATE SODIUM 100 MG CAPSULE PO SCH (08:30)
[2017-02-23] MEDS: NYSTATIN TOPICAL POWDER 15GM BOTTLE. TP SCH ×2 (08:30→20:12)
[2017-02-23 08:34] VITALS: BP 159/56
--- NOTE | 2017-02-23 11:36 | RAD ---
PORTABLE CHEST 1V Clinical Indication: soa Comparison: February 11, 2017 Technique: Portable AP view of the chest is obtained. Findings: There is improved aeration within the mid right lung when compared to the previous exam, although opacification remains within the right lower hemithorax. There is blunting of the right costophrenic angle. Left lung remains clear. No pneumothorax is seen. Cardiomediastinal silhouette is stable in size. Visualized osseous structures and overlying soft tissues demonstrate no acute interval change. IMPRESSION: Right basilar opacity remains, likely atelectasis or infiltrate. Adjacent small right pleural effusion present.
[2017-02-23] MEDS: ACETAMINOPHEN 500 MG TABLET PO PRN (15:42)
[2017-02-23 15:58] VITALS: BP 157/69
[2017-02-23 19:27] VITALS: BP 136/70
[2017-02-23] MEDS: MONTELUKAST 10 MG TABLET. PO SCH (20:11)
[2017-02-24 06:23] VITALS: BP 148/75
[2017-02-24] MEDS ORDERED: FUROSEMIDE 40 MG/4 ML VIAL IVP SCH ×2 (09:00)
[2017-02-24] MEDS: GABAPENTIN 300 MG CAPSULE. PO SCH ×2 (09:29→20:18)
[2017-02-24] MEDS: glipiZIDE 5 MG TABLET PO SCH (09:29)
[2017-02-24] MEDS: levoFLOXacin 250 MG TABLET PO SCH (09:30)
[2017-02-24] MEDS: DOCUSATE SODIUM 100 MG CAPSULE PO SCH (09:30)
[2017-02-24] MEDS: BENZONATATE 100 MG CAPSULE. PO SCH ×3 (09:30→20:18)
[2017-02-24] MEDS: TAMSULOSIN 0.4 MG CAP.ER.24H. PO SCH (09:30)
[2017-02-24] MEDS: LISINOPRIL 20 MG TABLET PO SCH (09:30)
[2017-02-24] MEDS: FUROSEMIDE 40 MG TABLET PO SCH (09:30)
[2017-02-24] MEDS: NYSTATIN TOPICAL POWDER 15GM BOTTLE. TP SCH ×2 (09:31→20:19)
[2017-02-24 11:23] VITALS: BP 154/55
[2017-02-24 19:44] VITALS: BP 136/66
[2017-02-24] MEDS: MONTELUKAST 10 MG TABLET. PO SCH (20:19)
[2017-02-25 05:18] VITALS: BP 154/64
[2017-02-25] MEDS: glipiZIDE 5 MG TABLET PO SCH (08:21)
[2017-02-25] MEDS: GABAPENTIN 300 MG CAPSULE. PO SCH ×2 (08:21→20:26)
[2017-02-25] MEDS: FUROSEMIDE 40 MG TABLET PO SCH (08:21)
[2017-02-25] MEDS: BENZONATATE 100 MG CAPSULE. PO SCH ×3 (08:21→20:26)
[2017-02-25] MEDS: DOCUSATE SODIUM 100 MG CAPSULE PO SCH (08:21)
[2017-02-25] MEDS: TAMSULOSIN 0.4 MG CAP.ER.24H. PO SCH (08:22)
[2017-02-25] MEDS: LISINOPRIL 20 MG TABLET PO SCH (08:22)
[2017-02-25] MEDS: levoFLOXacin 250 MG TABLET PO SCH (08:22)
[2017-02-25] MEDS: NYSTATIN TOPICAL POWDER 15GM BOTTLE. TP SCH ×2 (08:22→20:26)
[2017-02-25 20:05] VITALS: BP 183/61
[2017-02-25] MEDS: MONTELUKAST 10 MG TABLET. PO SCH (20:26)
[2017-02-26 04:56] VITALS: BP 146/61
[2017-02-26] MEDS: TAMSULOSIN 0.4 MG CAP.ER.24H. PO SCH (08:25)
[2017-02-26] MEDS: BENZONATATE 100 MG CAPSULE. PO SCH ×3 (08:25→21:25)
[2017-02-26] MEDS: GABAPENTIN 300 MG CAPSULE. PO SCH ×2 (08:25→21:25)
[2017-02-26] MEDS: DOCUSATE SODIUM 100 MG CAPSULE PO SCH (08:25)
[2017-02-26] MEDS: LISINOPRIL 20 MG TABLET PO SCH (08:26)
[2017-02-26] MEDS: FUROSEMIDE 40 MG TABLET PO SCH (08:26)
[2017-02-26] MEDS: glipiZIDE 5 MG TABLET PO SCH (08:26)
[2017-02-26] MEDS: NYSTATIN TOPICAL POWDER 15GM BOTTLE. TP SCH ×2 (08:26→21:28)
[2017-02-26] MEDS: levoFLOXacin 250 MG TABLET PO SCH (08:26)
[2017-02-26 14:33] VITALS: BP 144/62
[2017-02-26 19:30] VITALS: BP 137/58
[2017-02-26] MEDS: MONTELUKAST 10 MG TABLET. PO SCH (21:25)
[2017-02-26] MEDS: DARBEPOETIN ALFA 60 MCG/0.3 ML DISP.SYRIN. SQ SCH (21:26)
[2017-02-27 06:01] VITALS: BP 103/57
[2017-02-27] MEDS: ACETAMINOPHEN 500 MG TABLET PO PRN (06:20)
[2017-02-27] MEDS: GABAPENTIN 300 MG CAPSULE. PO SCH ×2 (08:24→20:20)
[2017-02-27] MEDS: glipiZIDE 5 MG TABLET PO SCH (08:25)
[2017-02-27] MEDS: DOCUSATE SODIUM 100 MG CAPSULE PO SCH (08:25)
[2017-02-27] MEDS: BENZONATATE 100 MG CAPSULE. PO SCH ×3 (08:25→20:20)
[2017-02-27] MEDS: LISINOPRIL 20 MG TABLET PO SCH (08:25)
[2017-02-27] MEDS: levoFLOXacin 250 MG TABLET PO SCH (08:25)
[2017-02-27] MEDS: TAMSULOSIN 0.4 MG CAP.ER.24H. PO SCH (08:25)
[2017-02-27] MEDS: FUROSEMIDE 40 MG TABLET PO SCH (08:25)
[2017-02-27] MEDS: NYSTATIN TOPICAL POWDER 15GM BOTTLE. TP SCH ×2 (08:27→20:20)
[2017-02-27] MEDS: traMADol 50 MG TABLET PO PRN ×2 (11:42→20:19)
[2017-02-27 14:50] VITALS: BP 129/63
[2017-02-27 19:53] VITALS: BP 125/79
[2017-02-27] MEDS: MONTELUKAST 10 MG TABLET. PO SCH (20:20)
[2017-02-28 06:03] VITALS: BP 112/62
[2017-02-28] MEDS: traMADol 50 MG TABLET PO PRN (08:16)
[2017-02-28] MEDS: BENZONATATE 100 MG CAPSULE. PO SCH ×3 (08:17→21:17)
[2017-02-28] MEDS: glipiZIDE 5 MG TABLET PO SCH (08:17)
[2017-02-28] MEDS: NYSTATIN TOPICAL POWDER 15GM BOTTLE. TP SCH ×2 (08:17→21:18)
[2017-02-28] MEDS: FUROSEMIDE 40 MG TABLET PO SCH (08:17)
[2017-02-28] MEDS: LISINOPRIL 20 MG TABLET PO SCH (08:17)
[2017-02-28] MEDS: DOCUSATE SODIUM 100 MG CAPSULE PO SCH (08:17)
[2017-02-28] MEDS: TAMSULOSIN 0.4 MG CAP.ER.24H. PO SCH (08:17)
[2017-02-28] MEDS: GABAPENTIN 300 MG CAPSULE. PO SCH ×2 (08:17→21:17)
[2017-02-28 14:00] VITALS: BP 129/52
[2017-02-28 18:21] VITALS: BP 145/63
[2017-02-28] MEDS: MONTELUKAST 10 MG TABLET. PO SCH (21:17)
[2017-03-01 06:23] VITALS: BP 120/57
[2017-03-01] MEDS: FUROSEMIDE 40 MG TABLET PO SCH (08:38)
[2017-03-01] MEDS: glipiZIDE 5 MG TABLET PO SCH (08:38)
[2017-03-01] MEDS: GABAPENTIN 300 MG CAPSULE. PO SCH ×2 (08:38→20:34)
[2017-03-01] MEDS: DOCUSATE SODIUM 100 MG CAPSULE PO SCH (08:38)
[2017-03-01] MEDS: TAMSULOSIN 0.4 MG CAP.ER.24H. PO SCH (08:38)
[2017-03-01] MEDS: LISINOPRIL 20 MG TABLET PO SCH (08:39)
[2017-03-01] MEDS: BENZONATATE 100 MG CAPSULE. PO SCH ×3 (08:39→20:34)
[2017-03-01] MEDS: NYSTATIN TOPICAL POWDER 15GM BOTTLE. TP SCH ×2 (08:39→20:35)
[2017-03-01 10:47] VITALS: BP 129/62
[2017-03-01] MEDS: traMADol 50 MG TABLET PO PRN (12:16)
[2017-03-01] MEDS: ACETAMINOPHEN 500 MG TABLET PO PRN ×2 (15:23→20:34)
[2017-03-01 18:13] VITALS: BP 103/56
[2017-03-01] MEDS: MONTELUKAST 10 MG TABLET. PO SCH (20:34)
[2017-03-02 05:37] VITALS: BP 109/57
[2017-03-02] MEDS: FUROSEMIDE 40 MG TABLET PO SCH (08:42)
[2017-03-02] MEDS: glipiZIDE 5 MG TABLET PO SCH (08:42)
[2017-03-02] MEDS: TAMSULOSIN 0.4 MG CAP.ER.24H. PO SCH (08:42)
[2017-03-02] MEDS: GABAPENTIN 300 MG CAPSULE. PO SCH ×2 (08:42→20:57)
[2017-03-02] MEDS: DOCUSATE SODIUM 100 MG CAPSULE PO SCH (08:42)
[2017-03-02] MEDS: LISINOPRIL 20 MG TABLET PO SCH (08:42)
[2017-03-02] MEDS: traMADol 50 MG TABLET PO PRN (08:43)
[2017-03-02] MEDS: BENZONATATE 100 MG CAPSULE. PO SCH ×3 (08:43→20:57)
[2017-03-02] MEDS: NYSTATIN TOPICAL POWDER 15GM BOTTLE. TP SCH ×2 (08:45→21:00)
[2017-03-02 15:02] VITALS: BP 119/71
[2017-03-02 18:53] VITALS: BP 124/64
[2017-03-02] MEDS: MONTELUKAST 10 MG TABLET. PO SCH (20:57)
[2017-03-02] MEDS: ACETAMINOPHEN 500 MG TABLET PO PRN (20:57)
[2017-03-03 05:00] VITALS: BP 107/52
[2017-03-03] MEDS: GABAPENTIN 300 MG CAPSULE. PO SCH ×2 (08:38→20:15)
[2017-03-03] MEDS: FUROSEMIDE 40 MG TABLET PO SCH (08:38)
[2017-03-03] MEDS: traMADol 50 MG TABLET PO PRN (08:38)
[2017-03-03] MEDS: TAMSULOSIN 0.4 MG CAP.ER.24H. PO SCH (08:38)
[2017-03-03] MEDS: DOCUSATE SODIUM 100 MG CAPSULE PO SCH (08:38)
[2017-03-03] MEDS: glipiZIDE 5 MG TABLET PO SCH (08:38)
[2017-03-03] MEDS: LISINOPRIL 20 MG TABLET PO SCH (08:38)
[2017-03-03] MEDS: BENZONATATE 100 MG CAPSULE. PO SCH ×3 (08:39→20:15)
[2017-03-03] MEDS: NYSTATIN TOPICAL POWDER 15GM BOTTLE. TP SCH ×2 (08:40→20:16)
[2017-03-03] MEDS: methylPREDNISolone 4 MG TABLET. PO SCH (13:44)
[2017-03-03] MEDS ORDERED: methylPREDNISolone SOD SUCC PF 40 MG/ML VIAL. IV SCH (14:00)
[2017-03-03 15:08] VITALS: BP 118/71
--- NOTE | 2017-03-03 16:31 | RAD ---
Bilateral lower extremity venous duplex study 03/08/2017 Clinical history: Bilateral leg swelling.. Technique: Using a combination of real time ultrasound imaging and color-flow and pulse Doppler imaging techniques along with graded compression and augmentation, duplex evaluation of the deep venous system of the both lower extremities was performed. Multiple images were obtained. Findings: There is no sonographic evidence of deep venous thrombosis involving the visualized deep venous structures of either lower extremity. Impression: Negative study.
[2017-03-03 18:57] VITALS: BP 177/70
[2017-03-03] MEDS: MONTELUKAST 10 MG TABLET. PO SCH (20:15)
[2017-03-04 05:59] VITALS: BP 147/62
[2017-03-04] MEDS ORDERED: methylPREDNISolone 4 MG TABLET. PO SCH (09:00)
[2017-03-04 09:41] VITALS: BP 147/62
[2017-03-04] MEDS: DOCUSATE SODIUM 100 MG CAPSULE PO SCH (09:41)
[2017-03-04] MEDS: FUROSEMIDE 40 MG TABLET PO SCH (09:41)
[2017-03-04] MEDS: glipiZIDE 5 MG TABLET PO SCH (09:41)
[2017-03-04] MEDS: LISINOPRIL 20 MG TABLET PO SCH (09:41)
[2017-03-04] MEDS: TAMSULOSIN 0.4 MG CAP.ER.24H. PO SCH (09:41)
[2017-03-04] MEDS: GABAPENTIN 300 MG CAPSULE. PO SCH (09:41)
[2017-03-04] MEDS: BENZONATATE 100 MG CAPSULE. PO SCH (09:41)
[2017-03-04] MEDS: methylPREDNISolone 4 MG TABLET. PO SCH (09:42)
[2017-03-04] MEDS: NYSTATIN TOPICAL POWDER 15GM BOTTLE. TP SCH (09:45)
[2017-03-04] MEDS ORDERED: METH4TAB PO (09:51)
[2017-03-04] MEDS ORDERED: TAMS0.4C97 PO (09:51)
[2017-03-04] MEDS ORDERED: TRAM50TA PO (09:51)
[2017-03-04] MEDS ORDERED: Phenazopyridine Hcl PO (09:51)
== END 2017-03-04 11:25 | disposition home health service (06) | DRG 682 ==
LOC: 1 SOUTH 16:36
PROVIDERS: ADMIT Family Medicine; ATTEND Family Medicine
DX: N17.9 Acute kidney failure, unspecified (principal); J18.9 Pneumonia, unspecified organism; I50.33 Acute on chronic diastolic (congestive) heart failure; I13.0 Hypertensive heart and chronic kidney disease with heart failure and stage 1 through stage 4 chronic kidney disease, or unspecified chronic kidney disease; J44.1 Chronic obstructive pulmonary disease with (acute) exacerbation; R13.10 Dysphagia, unspecified; N18.9 Chronic kidney disease, unspecified; E11.8 Type 2 diabetes mellitus with unspecified complications
CPT/HCPCS: 36415; 71010; 80053; 81001; 82947; 85027; 87086; 93970; J0881; J7509; J7512; 97110; 97116; 97530; 97535